=== PATIENT | female | born 1985 | race Caucasian/White ===

== ENCOUNTER 2017-11-22 18:12 | Observation (INO) | payer BC ==
[2017-11-22] MEDS ORDERED: NA CHLORIDE 0.9% 500 ML ONE (19:24)
[2017-11-22 19:50] LABS: Bicarbonate 25 mEq/L (21-31); Glucose Level 81 mg/dL (65-120); Potassium 4.1 mEq/L (3.6-5.0); Sodium Level 139 mEq/L (135-145)
[2017-11-22 19:51] LABS: BUN Blood Urea Nitrogen 15 mg/dL (6-20)
--- NOTE | 2017-11-22 19:54 | RAD REPORT ---
EXAM DESCRIPTION: CT - Head Brain Wo Cont - 11/22/2017 7:01 pm CLINICAL HISTORY: Headache, head pressure, retro-orbital pain COMPARISON: None. TECHNIQUE: Axial 5 mm thick images of the head were obtained without IV contrast. All CT scans are performed using dose optimization technique as appropriate and may include automated exposure control or mA/KV adjustment according to patient size. FINDINGS: No intracranial hemorrhage, mass, edema or shift of mid-line structures. No acute infarcti on changes seen. No abnormal extra-axial fluid collections. Ventricles are normal. Mastoid air cells and visualized portions of the paranasal sinuses are clear. No acute bony findings. IMPRESSION: Negative non-contrast CT head examination.
[2017-11-22 19:56] LABS: Absolute Lymphocytes (CBC) 1.6 K/uL (0.7-4.9); Absolute Monocytes 0.5 K/uL (0.1-1.3); Absolute Neutrophil 5.1 K/uL (1.8-8.0); Basophils % 0.3 % (0-1.3); Eosinophils % 1.2 % (0-4.4); Hematocrit 40.4 % (36.0-45.0); Lymphocytes % 22.1 % (15.3-44.8); MCH 30.1 pg (27.0-35.0); MCV 87.6 fL (80-100); MPV 8.1 fL (7.6-11.3); Monocytes % 6.4 % (3.3-12.3); RBC Red Blood Cell Count 4.61 M/uL (3.86-4.86)
[2017-11-22 20:30] LABS: Thyroid Stimulating Hormone 1.73 uIU/mL (0.34-5.60)
--- NOTE | 2017-11-22 20:44 | ER ---
Nurse's Notes [facility] Name: Selene Groves Age: 32 yrs Sex: Female : 1985 Arrival Date: 11/22/2017 Time: 18:14 Bed 2 Private MD: Diagnosis: Chest pain, unspecified;Ventricular premature depolarization Presentation: 11/22 18:17 Presenting complaint: Patient states: About 30 mins ago I got pressure in both my eyes la1 and then my chest started hurting and I feel a little disoriented. Transition of care: patient was not received from another setting of care. Onset of symptoms was November 22, 2017. Initial Sepsis Screen: Does the patient meet any 2 criteria? No. Patient's initial sepsis screen is negative. Does the patient have a suspected source of infection? No. Patient initial sepsis screen negative. Care prior to arrival: None. 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 - Social history:: Smoking status: Patient/guardian denies using tobacco. - Family history:: not pertinent. - Hospitalizations: : No recent hospitalization is reported. Screenin:20 Abuse screen: Denies threats or abuse. Denies injuries from another. Nutritional ak1 screening: No deficits noted. Tuberculosis screening: No symptoms or risk factors identified. Fall Risk None identified. Assessment: 18:30 General: Appears in no apparent distress. comfortable, obese, well groomed, well sg developed, well nourished, Behavior is calm, cooperative, appropriate for age. Pain: Complains of pain in anterior aspect of left upper chest Pain does not radiate. Quality of pain is described as aching, heavy, pressure. Neuro: Level of Consciousness is awake, alert, obeys commands, Oriented to person, place, time, situation, Team Lead are equal bilaterally Moves all extremities. Full function Gait is steady, Speech is normal, Facial symmetry appears normal, Pupils are PERRLA. Cardiovascular: Heart tones S1 S2 present Capillary refill is brisk in bilateral fingers Patient's skin is warm and dry. Respiratory: No deficits noted. Airway is patent Respiratory effort is even, unlabored, Respiratory pattern is regular, symmetrical. GI: No signs and/or symptoms were reported involving the gastrointestinal system. : No signs and/or symptoms were reported regarding the genitourinary system. EENT: No signs and/or symptoms were reported regarding the EENT system. Derm: Skin is pink, warm \T\ dry. Musculoskeletal: No signs and/or symptoms reported regarding the musculoskeletal system. 19:21 Pain: Pain began 2-3 days ago. ak1 Vital Signs: 18:18 BP 151 / 79; Pulse 36; Resp 16; Temp 97.0; Pulse Ox 100% on R/A; Weight 72.57 kg; la1 Height 5 ft. 3 in. (160.02 cm); 19:10 Pulse 82; Resp 20 S; Pulse Ox 100% on R/A; sg 19:21 BP 117 / 80; Pulse 83; Resp 20; Pulse Ox 97% on R/A; ak1 21:19 BP 123 / 66; Pulse 77; Resp 14; Pulse Ox 100% on R/A; aj 18:18 Body Mass Index 28.34 (72.57 kg, 160.02 cm) la1 19:10 BP in progress sg ED Course: 18:14 Patient arrived in ED. as 18:18 Triage completed. la1 18:19 Arm band placed on right wrist. la1 18:26 Nolan Kapadia MD is Attending Physician. rn 19:00 CT completed. Patient tolerated procedure well. Patient moved to CT via stretcher. nj Patient moved back from CT. 19:01 CT Head Brain wo Cont In Process Unspecified. EDMS 19:10 XRAY Chest (1 view) In Process Unspecified. EDMS 19:11 Patient moved back from CT. sg 19:20 Emilee Funes, ROBBIE is Primary Nurse. ak1 19:20 Patient has correct armband on for positive identification. Placed in gown. Bed in low ak1 position. Call light in reach. Side rails up X2. 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 Pulse ox on. NIBP on. 19:20 Inserted saline lock: 20 gauge in right antecubital area, using aseptic technique. ak1 Blood collected. 19:21 Patient maintains SpO2 saturation greater than 95% on room air. ak1 20:43 Eliezer Rangel MD is Hospitalizing Provider. rn 21:26 Report given to Kellie. aj 21:27 No provider procedures requiring assistance completed. Patient admitted, IV remains in aj place. intact. Administered Medications: 19:30 Drug: NS 0.9% 500 ml Route: IV; Rate: bolus; Site: right antecubital; ak1 19:57 Follow up: IV Status: Completed infusion ak1 Outcome: 20:44 Decision to Hospitalize by Provider. rn 21:27 Admitted to Tele accompanied by tech, via wheelchair, room 402, with chart, Report aj called to Kellie 21:27 Condition: good 21:27 Instructed on the need for admit, Demonstrated understanding of instructions. 21:45 Patient left the ED. bb Signatures: Dispatcher [employer] EDMS Rafat Vazquez RN Raissa Briceño RN RN Tabitha Cline Brenda, RN RN Nolan Feng MD MD rn Attema, Lee, RN RN Emilee Cox RN RN ak1 Mendoza Menchaca
--- NOTE | 2017-11-22 20:44 | EDPHYS ---
Physician Documentation [facility] Name: Selene Groves Age: 32 yrs Sex: Female : 1985 Arrival Date: 11/22/2017 Time: 18:14 Bed 2 Private MD: ED Physician Nolan Kapadia HPI: 11/22 19:05 This 32 yrs old Female presents to ER via Ambulatory with complaints of Chest rn Pain, High Blood Pressure. 19:05 The patient or guardian reports chest pain that is located primarily in the anterior rn aspect of left upper chest. The pain does not radiate. Duration: The patient or guardian reports multiple episodes, that are intermittent. Modifying factors: The symptoms are alleviated by nothing. the symptoms are aggravated by nothing. Severity of pain: At its worst the pain was mild in the emergency department the pain is unchanged. The patient has not experienced similar symptoms in the past. Reports chest pain, headache, generalized weakness, high blood pressure, has been happening on and off for 2 months. . 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 - Social history:: Smoking status: Patient/guardian denies using tobacco. - Family history:: not pertinent. - Hospitalizations: : No recent hospitalization is reported. ROS: 19:05 Constitutional: Negative for fever, chills, and weight loss, Eyes: Negative for injury, rn pain, redness, and discharge, Neck: Negative for injury, pain, and swelling, Cardiovascular: Negative for edema, Respiratory: Negative for shortness of breath, cough, wheezing, and pleuritic chest pain, Abdomen/GI: Negative for abdominal pain, nausea, vomiting, diarrhea, and constipation, Back: Negative for injury and pain, MS/Extremity: Negative for injury and deformity, Skin: Negative for injury, rash, and discoloration, Neuro: Negative for numbness, tingling, and seizure. Exam: 19:05 Constitutional: This is a well developed, well nourished patient who is awake, alert, rn and in no acute distress. Head/Face: Normocephalic, atraumatic. Eyes: Pupils equal round and reactive to light, extra-ocular motions intact. Lids and lashes normal. Conjunctiva and sclera are non-icteric and not injected. Cornea within normal limits. Periorbital areas with no swelling, redness, or edema. Neck: Trachea midline, no thyromegaly or masses palpated, and no cervical lymphadenopathy. Supple, full range of motion without nuchal rigidity, or vertebral point tenderness. No Meningismus. Cardiovascular: Regular rate, irregular rhythm, no murmur Respiratory: Lungs have equal breath sounds bilaterally, clear to auscultation and percussion. No rales, rhonchi or wheezes noted. No increased work of breathing, no retractions or nasal flaring. Abdomen/GI: Soft, non-tender, with normal bowel sounds. No distension or tympany. No guarding or rebound. No evidence of tenderness throughout. Skin: Warm, dry with normal turgor. Normal color with no rashes, no lesions, and no evidence of cellulitis. MS/ Extremity: Pulses equal, no cyanosis. Neurovascular intact. Full, normal range of motion. Equal circumference. Neuro: Awake and alert, GCS 15, oriented to person, place, time, and situation. Cranial nerves II-XII grossly intact. Motor strength 5/5 in all extremities. Sensory grossly intact. Vital Signs: 18:18 BP 151 / 79; Pulse 36; Resp 16; Temp 97.0; Pulse Ox 100% on R/A; Weight 72.57 kg; la1 Height 5 ft. 3 in. (160.02 cm); 19:10 Pulse 82; Resp 20 S; Pulse Ox 100% on R/A; sg 19:21 BP 117 / 80; Pulse 83; Resp 20; Pulse Ox 97% on R/A; ak1 21:19 BP 123 / 66; Pulse 77; Resp 14; Pulse Ox 100% on R/A; aj 18:18 Body Mass Index 28.34 (72.57 kg, 160.02 cm) la1 19:10 BP in progress sg MDM: 18:26 Patient medically screened. rn 20:42 Differential diagnosis: abnormal EKG, pericarditis, pleurisy, pneumothorax. Data rn reviewed: vital signs, nurses notes, lab test result(s), EKG, radiologic studies, plain films, and as a result, I will discharge patient. Counseling: I had a detailed discussion with the patient and/or guardian regarding: the historical points, exam findings, and any diagnostic results supporting the discharge/admit diagnosis, lab results, radiology results, the need for further work-up and treatment in the hospital. Response to treatment: the patient's symptoms have mildly improved after treatment, and as a result, I will admit patient. ED course: Pt with ongoing chest pain, no clear etiology, + bigeminy on ECG and monitor without clear explanation, will observe overnight to Dr. Gonzalez.. 11/22 18:39 Order name: CBC with Diff; Complete Time: 20:32 11/22 18:39 Order name: Basic Metabolic Panel; Complete Time: 20:32 11/22 18:39 Order name: TSH; Complete Time: 20:32 11/22 18:39 Order name: T4 Free; Complete Time: 20:32 11/22 18:39 Order name: Troponin (emerg Dept Use Only); Complete Time: 20:32 11/22 18:39 Order name: Magnesium; Complete Time: 20:32 11/22 18:39 Order name: CT Head Brain wo Cont; Complete Time: 20:32 11/22 18:39 Order name: XRAY Chest (1 view); Complete Time: 21:03 11/22 18:39 Order name: Urine Microscopic Only 11/22 20:33 Order name: Urine Dipstick--Ancillary (enter results) [facility] 11/22 20:33 Order name: Urine --Ancillary (enter results) [facility] 11/22 20:54 Order name: Urine --Ancillary; Complete Time: 21:03 [facility] 11/22 20:54 Order name: Urine Dipstick-Ancillary; Complete Time: 21:03 [facility] 11/22 18:39 Order name: IV Start; Complete Time: 19:23 11/22 18:39 Order name: EKG; Complete Time: 18:41 11/22 18:39 Order name: EKG - Nurse/Tech; Complete Time: 19:02 11/22 18:39 Order name: Urine Test (obtain specimen); Complete Time: 20:32 11/22 18:39 Order name: Urine Dipstick-Ancillary (obtain specimen); Complete Time: 20:32 rn Administered Medications: 19:30 Drug: NS 0.9% 500 ml Route: IV; Rate: bolus; Site: right antecubital; ak1 19:57 Follow up: IV Status: Completed infusion ak1 Disposition: 11/22/17 20:44 Hospitalization ordered by Eliezer Rangel for Observation. Preliminary diagnosis are Chest pain, unspecified, Ventricular premature depolarization. - Bed requested for Telemetry/MedSurg (observation). - Status is Observation. bb - Condition is Stable. - Problem is new. - Symptoms have improved. UTI on Admission? No Signatures: Dispatcher [employer] EDMS Sonja Camejo RN Bhumika Osborne RN RN Nolan Feng MD MD rn Attema, Lee, RN RN Emilee Cox, RN RN ak1
[2017-11-22 20:54] LABS: Urine Blood NEGATIVE (NEG); Urine Glucose NEGATIVE (NEG); Urine Protein NEGATIVE (NEG); Urine Specific Gravity 1.025 (1.005-1.030); Urine pH 5.5 (5.0-7.0)
--- NOTE | 2017-11-22 21:01 | RAD REPORT ---
EXAM DESCRIPTION: RAD - Chest Single View - 11/22/2017 7:10 pm CLINICAL HISTORY: Chest pain COMPARISON: None. TECHNIQUE: AP portable chest image was obtained 1859 hours . FINDINGS: Lungs are clear. Heart and vasculature are normal. No measurable pleural effusion and no p neumothorax. No gross bony abnormality seen. No acute aortic findings suspected. IMPRESSION: No acute cardiopulmonary process.
[2017-11-22 21:11] LABS: Urine Bacteria <20 /HPF (<20); Urine Culture Reflex Order NOT NEEDED
[2017-11-22] MEDS: ACETAMINOPHEN 500 MG TAB PO PRN (22:59)
--- NOTE | 2017-11-22 23:04 | P.HP ---
Certification for Inpatient Patient admitted to: Observation With expected LOS: <2 Midnights Practitioner: I am a practitioner with admitting privileges, knowledge of patient current condition, hospital course, and medical plan of care. Services: Services provided to patient in accordance with Admission requirements found in Title 42 Section 412.3 of the Code of Federal Regulations Patient History Date of Service: 11/22/17 Reason for admission: chest pain History of Present Illness: Ms Groves is a 32 years old woman with benign past medical history, came to ED complaining of chest pain. The pain last for about 1 hour, located in sternal area, about 7/10 of intensity, associated with dizziness, nausea, headache, bilateral eye pain. She denied diaphoresis. She has never had chest pain before , however, headache and dizziness episode has been a recurrent problem since 1 month ago. No history of fever or chills. At my encounter she is chest pain free. Initial troponin I is negative, EKG shows no ST-T abnormalities, but has frequent PVC's. Allergies No Known Allergies Allergy (Uncoded 11/22/17 21:48) Unknown - Past Medical/Surgical History Past Medical History: Reviewed- Non-Contributory Past Surgical History: Reviewed- Non-Contributory - Family History Family History: Reviewed- Non-Contributory - Social History Smoking Status: Never smoker Alcohol use: No CD- Drugs: No Place of Residence: Home Review of Systems 10-point ROS is otherwise unremarkable Physical Examination - Vital Signs Temperature: 98.8 F Blood Pressure: 134/65 Pulse: 79 Respirations: 18 Pulse Ox (%): 98 - Physical Exam General: Alert, In no apparent distress HEENT: Atraumatic, PERRLA, Mucous membr. moist/pink, EOMI, Sclerae nonicteric Neck: Supple, 2+ carotid pulse no bruit, No LAD, Without JVD or thyroid abnormality Respiratory: Clear to auscultation bilaterally, Normal air movement Cardiovascular: Regular rate/rhythm, Normal S1 S2 Gastrointestinal: Normal bowel sounds, No tenderness Musculoskeletal: No tenderness Integumentary: No rashes Neurological: Normal speech, Normal strength at 5/5 x4 extr, Normal tone, Normal affect Lymphatics: No axilla or inguinal lymphadenopathy - Studies Laboratory Data (last 24 hrs) 11/22/17 19:18: Sodium 139, Potassium 4.1, BUN 15, Creatinine 0.60, Glucose 81, Magnesium 2.0 04/16/18 19:18: WBC 7.2, Hgb 13.9, Hct 40.4, Plt Count 261 Assessment and Plan - Problems (Diagnosis) (1) Chest pain Current Visit: Yes Status: Acute Qualifiers: Chest pain type: precordial pain Qualified Code(s): R07.2 - Precordial pain (2) Headache Current Visit: Yes Status: Acute Qualifiers: Headache type: unspecified Headache chronicity pattern: acute headache Intractability: not intractable Qualified Code(s): R51 - Headache - Plan the patient will be admitted to the hospital due to chest pain and abnormal EKG. Initial tropoinin I is negative. 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 - Advance Directives Does patient have a Living Will: No Does patient have a Durable POA for Healthcare: No - Code Status/Comfort Care Code Status Assessed: Yes Code Status: Full Code
[2017-11-23] MEDS: ACETAMINOPHEN 500 MG TAB PO PRN ×2 (05:51→15:18)
[2017-11-23 06:13] LABS: Absolute Monocytes 0.7 K/uL (0.1-1.3); Absolute Neutrophil 4.8 K/uL (1.8-8.0); Basophils % 0.5 % (0-1.3); Hematocrit 39.8 % (36.0-45.0); Lymphocytes % 26.1 % (15.3-44.8); MCH 29.1 pg (27.0-35.0); MPV 8.4 fL (7.6-11.3); Monocytes % 8.7 % (3.3-12.3); RBC Red Blood Cell Count 4.52 M/uL (3.86-4.86)
[2017-11-23 06:27] LABS: BUN Blood Urea Nitrogen 16 mg/dL (6-20); Bicarbonate 25 mEq/L (21-31); Glucose Level 95 mg/dL (65-120); HDL Cholesterol 42 mg/dL (29-89); LDL Cholesterol, Calculated 111 (<130); Potassium 4.2 mEq/L (3.6-5.0); Sodium Level 132 mEq/L (135-145)
--- NOTE | 2017-11-23 08:28 | EKG ---
Test Date: 2017-11-22 Test Time: 18:28:35 Residential Sales: NARDA MEASUREMENT RESULTS: Intervals: Rate: 90 OK: 120 QRSD: 98 QT: 350 QTc: 428 [place]: P: 60 OK: 120 QRS: -10 T: 16 INTERPRETIVE STATEMENTS: Sinus rhythm with frequent premature ventricular complexes Abnormal ECG Compared to ECG 03/15/2011 02:48:54 Ventricular premature complex(es) now present Electronically Signed On 11-23-17 08:26:19 CDT by Dmitry Jacome
--- NOTE | 2017-11-23 08:28 | EKG ---
Test Date: 2017-11-22 Test Time: 18:29:49 Research Attorney: NARDA MEASUREMENT RESULTS: Intervals: Rate: 90 IA: QRSD: 92 QT: 370 QTc: 452 [place]: P: 54 IA: QRS: -4 T: 15 INTERPRETIVE STATEMENTS: Undetermined rhythm Otherwise normal ECG Compared to ECG 11/22/2017 18:28:35 Sinus rhythm no longer present Ventricular premature complex(es) no longer present Myocardial infarct finding no longer present Electronically Signed On 11-23-17 08:25:49 CDT by Dmitry Jacome
[2017-11-23] MEDS: ENOXAPARIN 40 MG/0.4 ML SQ SCH (08:48)
[2017-11-23] MEDS: ASPIRIN EC 81 MG TAB PO SCH (08:48)
[2017-11-23] MEDS ORDERED: HYDROCODONE/APAP 5/325 MG TAB PO ONE (08:49)
[2017-11-23] MEDS ORDERED: SUMATRIPTAN SUCCI 50 MG TAB PO ONE (10:58)
--- NOTE | 2017-11-23 12:15 | CON ---
Date of Consultation: 11/23/2017 Reason For Consultation: Chest pain, PVCs and hypertension. History Of Present Illness: Ms. Groves is a 32-year-old. She is breast-feeding now her. Baby is a year and half, came in with hypertension, slight chest pain, was noted to have PVCs on the monitor, although patient does not really feel them. She denied PND, orthopnea, pedal edema. She denied any syncope. Denied any fever or chills. She denied any excessive stress recently. 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 Past Medical History: Negative. Allergies: NONE. Review of Systems: Negative. Social History: Negative. Family History: Negative. Physical Examination: Vital Signs: Stable, afebrile. HEENT: Negative. Neck: Supple. No bruit. Chest: Clear. Cardiac: Revealed a regular rhythm and rate without any murmurs, gallops, or rubs. Abdomen: Benign. Extremities: Revealed no clubbing, cyanosis, or edema. Diagnostic Data: All normal. Impression And Plan: 1.Hypertension, new onset. Suboptimal control. PVCs on monitor. Consider the use of low-dose beta -jorgito. I believe this is safe with breast-feeding. 2.The patient has reported some snoring. Unsure if she has any sleep apnea. I think, we can arrang e an outpatient sleep study for her and we will see her as an outpatient. She can go home today if h er echocardiogram is normal. LAW/YULY Voice ID: [id number] Report ID: [id number]
--- NOTE | 2017-11-23 12:57 | RAD REPORT ---
EXAM DESCRIPTION: MRI - MRA Head Wo Cont - 11/23/2017 12:41 pm CLINICAL HISTORY: Headache, syncope COMPARISON: None. TECHNIQUE: Axial and coronal 3D [id number] image acquisition was performed. 3D rotational images were generated with source and reconstruction images reviewed. FINDINGS: No aneurysm or vascular malformation. There is no vasculitis or other diffuse or focal abn ormality of the intracranial vasculature. The internal carotid arteries are identifiable from origin to intracranial terminus. There is no dissection, stenosis or focal abnormality seen. Vertebral arter ies are codominant. No basilar abnormality. Major venous sinuses are patent. Limited intracranial assessment is grossly normal. 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 IMPRESSION: Negative MRA head examination. Bilateral internal carotid arteries and the distal half o f the each vertebral artery without abnormality as well.
--- NOTE | 2017-11-23 14:30 | PN ---
Date of Progress Note: 11/23/2017 Subjective: The patient is seen and examined, chart reviewed, and case discussed with RN. The patient denies any further chest pain. Does report headache that has been ongoing for the past several months and some visual changes. Review of Systems: Negative except as above. Medications: Reviewed. Physical Examination: Vital Signs: Temperature 97.9, heart rate 51, blood pressure 99/65, respirations 18, and O2 96% on room air. General: Awake, alert, oriented x3, in some mild distress. Obese female. CV: S1, S2. No murmurs. Regular rate and rhythm. Peripheral pulses present. Respiratory: Moving air well bilaterally. No wheezing. No stridor. No use of accessory muscles Gastrointestinal: Abdomen is soft, nontender, nondistended. Positive bowel sounds. No guarding or rigidity. Extremities: No clubbing, cyanosis, or edema. Neurologic: Nonfocal. Laboratory Data: Sodium 132, potassium 4.2, chloride 106, CO2 25, BUN 16, creatinine 0.59, glucose 95, and calcium 9.1. Troponin less than 0.03 x3. Triglycerides 98, cholesterol 173, LDL 111, and HDL 42. TSH 1.73. WBC 7.7, H and H 13.1, 39.8, and platelets 275. Head CT scan does not show any acute abnormalities. Assessment And Plan: A 32-year-old female with; 1. Atypical chest pain. We will await echocardiogram. Troponins negative. Acute coronary syndrome ruled out. 2. Acute on chronic headache, intractable, may be secondary to migraine headache versus idiopathic intracranial hypertension. We will obtain magnetic resonance venogram to rule out sinus thrombosis. We will consult Neurology. We will start on Imitrex. The patient counseled regarding caffeine withdrawal headaches and non-steroidal anti-inflammatory drug rebound headaches. The patient instructed to lose weight with a low-sodium fluid-restricted diet. The patient also recommended to establish care with a PCP. The patient voiced understanding. Nurses to provide patient education regarding headaches. Addendum: Case discussed with Dr. Jacome who feels that this is atypical chest pain. Spoke with Dr. Ruffin with neurology recommended LP under fluoro guidance for possible therapeutic tap if opening pressure is elevated SA/MODL Voice ID: [id number] Report ID: [id number] MTDD
[2017-11-23] MEDS: TOPIRAMATE 25 MG TAB PO SCH (20:20)
--- NOTE | 2017-11-24 00:27 | CON ---
Reason For Consultation: Consultation called because of persistent headache. History Of Present Illness: Ms. Groves is a 32-year-old patient who comes into the hospit al with chest pain, pressure, and headache. She said she has a history of migraines that began in he r teenage years. Typically headaches are frontal, pounding, associated with light and sound hypersen sitivity, scalp sensitivity, and nausea. Headaches may last 1-2 days and occur 2 or so a day times p er month. She would try Tylenol that may not be very effective, and Excedrin Migraine as well, which is only partially effective. She denies any triggers such as any foods, atmospheric pressure change s, or menstrual cycle triggers. Since coming into the hospital she did have a headache which ranged up to 10/10. It did not respond to Tylenol or [place], but did respond to Imitrex. She had a brain MRI and CT scan, which showed no acute ischemic or hemorrhagic change. No central ne rvous system bleeding or aneurysm identified on MR angiogram. She did say some of the headaches are associated with a pressure-like sensation in eyes and some scotoma of flashing lights. She reports having 5 children and after last she said she gained a lot of weight, and it wa s a tough on her. There was swelling of her arms, face, and there was tingling in her hand s, and there was hypertension. This was discussed with the hospitalist and the possibility of pseudo tumor cerebri was entertained, and the patient was now set for a lumbar puncture under fluoroscopy to have CSF pressure assessed and potentially a high-volume lumbar puncture with a 20-30 cc removed if the intracerebral pressure is elevated to around 15 to 20 or more centimeters of water. Past Medical History: As indicated history of migraines was undiagnosed. Note last menstrual period is 10/21/2017, and she has 5 children. Allergies: NO KNOWN DRUG ALLERGIES. Surgeries: None. Medications: On a regular basis none. Family History: Denies any history of headaches, strokes, or seizures. Social History: No alcohol, tobacco, or IV drug use. Review of Systems: She denies any recent fevers, chills, nausea, vomiting. Reports some weight gain over the last year with the . No shortness of breath. No wheezing . No diarrhea, constipation. No other gastrointestinal issues. Physical Examination: Vital Signs: Blood pressure 117/67, pulse 87, respiratory rate 18, temperature 98.4, oxygen saturati on 100% on room air, weight 164 pounds, height 5 feet 3 inches, BMI 29. General: Ms. Groves is resting in bed. She is in no acute distress. She is normocephalic, atrauma tic. Her sclerae are anicteric. Oropharynx is moist and pink. Neck: Supple. Chest: Clear. Heart: Regular. Extremities: Show no edema, cyanosis, or clubbing. She has no nuchal rigidity. Neurologic: She is alert and oriented to person, place, time, and situation. She follows all comman ds appropriately. Cranial nerves are intact to examination. Motor in the upper and lower extremitie s, normal strength proximally and distally, 5/5 rating. Sensory examination intact in upper and lowe r extremities. Coordination intact in upper and lower extremities. Reflexes 2+ upper and lower extr emities. Gait good stance, stride, and arm swing. Laboratory Studies: Complete blood count with differential is completely normal. Chemistries all co mpletely normal. Thyroid function is normal. Urinalysis unremarkable. Diagnostic Data: Electrocardiogram shows a few ventricular premature complexes, and chest x-ray show s no acute cardiopulmonary processes. Assessment: Ms. Groves is a 32-year-old patient with long history of migraines, who appears to have a migraine headache. However, there is a potential for possible pseudotumor given the patient's robyn ght gain and pressure-like finding. She does not have pupillary asymmetry or abnormal eye evaluation . Plan: 1.We will do lumbar puncture under fluoroscopy for opening pressure and potentially withdrawal of hi gh volume of CSF if the patient has an elevated opening pressure. 2.We will start Topamax 25 mg at night. 3.She may use Imitrex 25 mg orally every 2 hours up to 4 in 24 hours for abortive headache treatment . We also used Imitrex subcutaneous 6 mg as needed for abortive headache treatment. 4.The patient was told of the importance of hydration with free water and to eventually engage in re gular exercise for at least 30 minutes daily to decrease the recurrence of her headaches to manage he r blood pressure as well. 5.The patient will be seen in clinic in followup for 1 month after her discharge. RONAL/MODL Voice ID: [id number] Report ID: [id number]
--- NOTE | 2017-11-24 07:43 | ECHO ---
HEIGHT: 5 ft 3 in WEIGHT: 164 lb 6.4 oz DATE OF STUDY: 11/23/[address]: Eliezer Gonzalez MD 2-DIMENSIONAL: YES M.MODE: YES DOPPLER: YES COLOR FLOW: YES TDS: NO PORTABLE: NO DEFINITY: NO BUBBLE STUDY: NO DIAGNOSIS: CHEST PAIN CARDIAC HISTORY: CATHERIZATION: NO SURGERY: NO PROSTHETIC VALVE: NO PACEMAKER: NO MEASUREMENTS (cm) DIASTOLIC (NORMALS) SYSTOLIC (NORMALS) IVSd 0.8 (0.6-1.2) LA Diam 3.3 (1.9-4.0) LVEF 60% LVIDd 4.9 (3.5-5.7) LVIDs 3.4 (2.0-3.5) %FS 32% LVPWd 0.9 (0.6-1.2) Ao Diam 2.6 (2.0-3.7) 2 DIMENSIONAL ASSESSMENT: RIGHT ATRIUM: NORMAL LEFT ATRIUM: NORMAL RIGHT VENTRICLE: NORMAL LEFT VENTRICLE: NORMAL TRICUSPID VALVE: NORMAL MITRAL VALVE: NORMAL PULMONIC VALVE: NORMAL AORTIC VALVE: NORMAL PERICARDIAL EFFUSION: NONE AORTIC ROOT: NORMAL LEFT VENTRICULAR WALL MOTION: NORMAL DOPPLER/COLOR FLOW: MILD TRICUSPID REGURGITATION. NORMAL RIGHT VENTRICULAR SYSTOLIC PRESSURE. COMMENTS: MILD TRICUSPID REGURGITATION. NORMAL RIGHT VENTRICULAR SYSTOLIC PRESSURE. NORMAL LEFT VENTRICULAR EJECTION FRACTION AND SIZE. NO MITRAL VALVE PROLAPSE. NO EFFUSION. TECHNOLOGIST: Neptali CAIN
[2017-11-24] MEDS: ASPIRIN EC 81 MG TAB PO SCH (09:00)
[2017-11-24] MEDS: ENOXAPARIN 40 MG/0.4 ML SQ SCH (09:00)
[2017-11-24] MEDS: ACETAMINOPHEN 500 MG TAB PO PRN (09:30)
[2017-11-24 10:39] LABS: Protime INR 1.09
--- NOTE | 2017-11-24 12:20 | RAD REPORT ---
EXAM DESCRIPTION: RAD - Lumbar Puncture For Dx - 11/24/2017 12:11 pm CLINICAL HISTORY: Headache COMPARISON: None. TECHNIQUE: The procedure, risks and alternatives to the procedure were discussed with the patient in detail. After answering all questions, both oral and written consent were obtained. Time-out procedu re was performed. The patient was placed in an oblique prone position on the fluoroscopic table. The skin of the lower back was prepped and draped in the usual sterile fashion. After anesthetizing the skin and deeper sof t tissues with 1% lidocaine, a 22 gauge needle was advanced into the thecal sac at the L4-5 level. Opening pressure measurement was obtained and was normal measuring 15 centimeters of water. Approximately 12 cc of clear CSF was then obtained and sent for requested lab studies. At the conclusion of the procedure the needle was withdrawn and a sterile bandage placed over the pun cture site. The patient tolerated the procedure well without immediate complications. Post-procedure care and precaution instructions were discussed with the patient before the LP procedure. IMPRESSION: Successful fluoroscopic guided lumbar puncture. All obtained fluid was sent to the lab f or studies requested by the referring physician.
[2017-11-24 13:03] LABS: Fluid Total Volume 12.5 ml
[2017-11-24 13:25] LABS: CSF Glucose 59 mg/dl (40-70)
[2017-11-24 13:56] LABS: Appearance CLEAR (CLEAR); Body Fluid Source CSF; Color of fluid Colorless (COLORLESS)
[2017-11-24 13:57] LABS: Body Fluid WBC 0 /mm^3
[2017-11-24] MEDS ORDERED: HYDROCODONE/APAP 7.5/325 MG TAB PO PRN ×2 (14:53→17:18)
[2017-11-24] MEDS ORDERED: DIAZEPAM 5 MG TABLET PO SCH (15:00)
[2017-11-24] MEDS: TOPIRAMATE 25 MG TAB PO SCH (20:23)
--- NOTE | 2017-11-24 21:34 | PN ---
Date of Progress Note: 11/24/2017 Subjective: The patient seen and examined. Chart reviewed and case discussed with RN and Neurology, Dr. Ruffin. The patient going for lumbar tap today. The patient's headache is still present. Review of Systems: Negative except as above. Medications: Reviewed. Objective: Vital Signs: Temperature 97.6, heart rate 54, blood pressure 115/56, respirations 18, O2 97% on room air. General: Awake, alert, oriented x3, in some acute distress. Obese female. CV: S1, S2. No murmurs. Peripheral pulses present. Respiratory: Moving air well bilaterally. No wheezing. Gastrointestinal: Abdomen is soft, obese, nontender, nondistended. Positive bowel sounds. Extremities: No clubbing, cyanosis, edema. Neuro: Nonfocal. Laboratory Data: INR 1.09. CSF: Volume 12.5; color, colorless; appearance, clear, nonxanthochromic ; WBC 0; RBC 0, no neutrophils, lymphocytes, or mononuclear cells. Glucose 59, total protein 26. Cu lture pending. No WBC seen. No organisms seen. Echocardiogram shows EF 60%, normal EF. Assessment And Plan: A 32-year-old female with, 1.Atypical chest pain, resolved. Acute coronary syndrome ruled out. 2.Acute on chronic headache, intractable secondary to migraine headache versus idiopathic intracrani al hypertension. MRI is negative. We will continue patient on Topamax and Imitrex as needed. LP garcia s been done. Opening pressure was 15. Appreciate Dr. Jacome's input. 3.Obesity. Counseled on diet restriction and weight loss. SA/MODL Voice ID: [id number] Report ID: [id number]
--- NOTE | 2017-11-25 13:57 | P.DS ---
Admission Date: 11/22/17 Discharge Date: 11/25/17 Disposition: ROUTINE DISCHARGE Discharge Condition: GOOD Reason for Admission: chest pain Consultations: Cardiology Dr. Jacome neurology Dr. neville Procedures: Lumbar puncture - Problems (1) Chest pain Onset Date: 11/23/17 Status: Acute Qualifiers: Chest pain type: precordial pain Qualified Code(s): R07.2 - Precordial pain (2) Headache Onset Date: 11/23/17 Status: Acute Qualifiers: Headache type: unspecified Headache chronicity pattern: acute headache Intractability: not intractable Qualified Code(s): R51 - Headache Brief History of Present Illness: From H and P Ms Groves is a 32 years old woman with benign past medical history, came to ED complaining of chest pain. The pain last for about 1 hour, located in sternal area, about 7/10 of intensity, associated with dizziness, nausea, headache, bilateral eye pain. She denied diaphoresis. She has never had chest pain before , however, headache and dizziness episode has been a recurrent problem since 1 month ago. No history of fever or chills. At my encounter she is chest pain free. Initial troponin I is negative, EKG shows no ST-T abnormalities, but has frequent PVC's. Hospital Course: Patient is a 32-year-old female who was admitted to the hospital for chest pain and headache. Patient was seen by cardiology and ACS was ruled out. Echo was done which showed normal ejection fraction. Patient was complaining of headaches for several months. She was thought to have idiopathic intracranial hypertension neurology was consulted patient had lumbar puncture done but did not have an elevated opening pressure. CSF results were normal patient then was started on Imitrex and Topamax which improved her headache MRI was done to rule out any intracranial abnormalities which was also negative for any acute changes. Patient felt better. She was then cleared for discharge from consultants standpoint. Patient was instructed on safety considering her new medications and was instructed to discontinue breast-feeding due to Topamax which can pass through in breast milk. Patient voiced understanding Vital Signs/Physical Exam: Temp Pulse Resp BP Pulse Ox 97.3 F 72 17 118/66 98 11/24/17 20:00 11/24/17 20:00 11/24/17 20:00 11/24/17 20:00 11/24/17 20:00 Other Physical/Emotional Findings: PLEASE SEE PROGRESS NOTE DICTATED ON DAY OF DISCHARGE FOR PHYSICAL EXAM FINDINGS Laboratory Data at Discharge: WBC 7.7 K/uL (4.3-10.9) 11/23/17 05:26 Hgb 13.1 g/dL (12.0-15.0) 11/23/17 05:26 Hct 39.8 % (36.0-45.0) 11/23/17 05:26 Plt Count 275 K/uL (152-406) 11/23/17 05:26 PT 12.9 SECONDS (9.5-12.5) H 11/24/17 10:15 INR 1.09 11/24/17 10:15 APTT 27.4 SECONDS (24.3-36.9) 11/24/17 10:15 Sodium 132 mEq/L (135-145) L 11/23/17 05:26 Potassium 4.2 mEq/L (3.6-5.0) 11/23/17 05:26 BUN 16 mg/dL (6-20) 11/23/17 05:26 Creatinine 0.59 mg/dL (0.44-1.00) 11/23/17 05:26 Glucose 95 mg/dL (65-120) 11/23/17 05:26 Magnesium 2.0 mg/dL (1.8-2.5) 11/22/17 19:18 Troponin I < 0.03 ng/mL (<0.03) 11/23/17 14:18 Triglycerides 98 mg/dL (35-160) 11/23/17 05:26 Cholesterol 173 mg/dL (<200) 11/23/17 05:26 HDL Cholesterol 42 mg/dL (29-89) 11/23/17 05:26 Cholesterol/HDL Ratio 4.12 11/23/17 05:26 Home Medications: RX: Metoprolol Tartrate 12.5 mg PO DAILY #30 tablet 11/24/17 RX: Topiramate [Topamax*] 25 mg PO BEDTIME #30 tab 11/24/17 Sumatriptan [Imitrex] 25 mg PO PRN #30 tab 11/24/17 New Medications: RX: Metoprolol Tartrate 12.5 mg PO DAILY #30 tablet RX: Topiramate [Topamax*] 25 mg PO BEDTIME #30 tab Sumatriptan [Imitrex] 25 mg PO PRN #30 tab Patient Discharge Instructions: Follow up with lead shipper Dr. Jacome in 2 weeks. Follow up with neurologist Dr. Neville in 2 weeks. Establish care with a PCP. Return to ER for worsening condition Diet: Low sodium Activity: Ad michael Followup: Dmitry Jacome MD [ACTIVE - CAN ADMIT] - Messi Neville MD [ASSOCIATE-ACTIVE - CAN ADMIT] -
== END 2017-11-24 21:55 | disposition home or self-care (01) ==
LOC: ER 18:12 → ERHOLD 20:44 → 4TH 21:29
PROVIDERS: ADMIT Internal Medicine; ATTEND Internal Medicine
PROC: 009U3ZX Drainage of Spinal Canal, Percutaneous Approach, Diagnostic (ICD-10-PCS; principal; 2017-11-24)
DX: R07.2 Precordial pain (principal); R51 Headache
CPT/HCPCS: 36415; 62270; 70450; 70544; 71045; 77003; 80048; 80061; 81003; 81015; 81025; 82945; 83735; 84157; 84439; 84443; 84484; 85025; 85610; 85730; 87070; 88108; 88313; 89050; 93005; 93306; 99285; G0378; J1650

== ENCOUNTER 2017-11-25 08:48 | Emergency (ER) | payer BC ==
[2017-11-25] MEDS ORDERED: NA CHLORIDE 0.9% 2,000 ML ONE (09:55)
[2017-11-25] MEDS ORDERED: ONDANSETRON 4 MG/2 ML VIAL ONE (10:27)
[2017-11-25] MEDS ORDERED: FENTANYL CITR 100 MCG/2 ML ONE (10:27)
[2017-11-25 10:32] LABS: Absolute Lymphocytes (CBC) 1.1 K/uL (0.7-4.9); Absolute Monocytes 0.5 K/uL (0.1-1.3); Absolute Neutrophil 7.5 K/uL (1.8-8.0); Basophils % 0.5 % (0-1.3); Eosinophils % 1.5 % (0-4.4); Hematocrit 41.6 % (36.0-45.0); MCH 29.7 pg (27.0-35.0); MCV 86.2 fL (80-100); MPV 8.1 fL (7.6-11.3); Monocytes % 5.2 % (3.3-12.3); RBC Red Blood Cell Count 4.82 M/uL (3.86-4.86)
[2017-11-25 10:44] LABS: ALT/SGPT 17 IU/L (10-60); AST/SGOT 13 IU/L (10-42); Albumin 4.3 g/dL (3.2-5.5); Alkaline Phosphatase 78 IU/L (42-121); BUN Blood Urea Nitrogen 15 mg/dL (6-20); Bicarbonate 24 mEq/L (21-31); Bilirubin Total 0.6 mg/dL (0.3-1.2); Glucose Level 100 mg/dL (65-120); Potassium 3.8 mEq/L (3.6-5.0); Protein, Total 7.7 g/dL (6.0-8.3); Sodium Level 135 mEq/L (135-145)
--- NOTE | 2017-11-25 11:37 | EDPHYS ---
Physician Documentation [facility] Name: Selene Groves Age: 32 yrs Sex: Female : 1985 Arrival Date: 11/25/2017 Time: 08:51 Bed 19 Private MD: None, None ED Physician Juan Corrales HPI: 11/25 10:46 This 32 yrs old Female presents to ER via Ambulatory with complaints of jah Headache. 10:46 The patient complains of pain to the top of head, forehead, left frontal area, left jah side of the back of head, left temporal area, left occipital area, right frontal area, right side of the back of head, right temporal area and right occipital area. The patient describes the headache as constant. Onset: The symptoms/episode began/occurred 1 day(s) ago. Associated signs and symptoms: The patient has no apparent associated signs or symptoms. Severity of symptoms: At its worst the pain was moderate, in the emergency department the pain is unchanged. Headache History: Denies prior headaches. The patient has not experienced similar symptoms in the past. 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 - Social history:: Smoking status: Patient/guardian denies using tobacco. - Family history:: not pertinent. ROS: 10:46 Constitutional: Negative for fever, chills, and weight loss, Eyes: Negative for injury, jah pain, redness, and discharge, ENT: Negative for injury, pain, and discharge, Neck: Negative for injury, pain, and swelling, Cardiovascular: Negative for chest pain, palpitations, and edema, Respiratory: Negative for shortness of breath, cough, wheezing, and pleuritic chest pain, Abdomen/GI: Negative for abdominal pain, nausea, vomiting, diarrhea, and constipation, Back: Negative for injury and pain, : Negative for injury, bleeding, discharge, and swelling, MS/Extremity: Negative for injury and deformity, Skin: Negative for injury, rash, and discoloration, Psych: Negative for depression, anxiety, suicide ideation, homicidal ideation, and hallucinations, Allergy/Immunology: Negative for hives, rash, and allergies, Endocrine: Negative for neck swelling, polydipsia, polyuria, polyphagia, and marked weight changes, Hematologic/Lymphatic: Negative for swollen nodes, abnormal bleeding, and unusual bruising. 10:46 Neuro: Positive for headache, worse with standing. Exam: 10:46 Constitutional: This is a well developed, well nourished patient who is awake, alert, jah and in no acute distress. Head/Face: Normocephalic, atraumatic. Eyes: Pupils equal round and reactive to light, extra-ocular motions intact. Lids and lashes normal. Conjunctiva and sclera are non-icteric and not injected. Cornea within normal limits. Periorbital areas with no swelling, redness, or edema. ENT: Nares patent. No nasal discharge, no septal abnormalities noted. Tympanic membranes are normal and external auditory canals are clear. Oropharynx with no redness, swelling, or masses, exudates, or evidence of obstruction, uvula midline. Mucous membranes moist. Neck: Trachea midline, no thyromegaly or masses palpated, and no cervical lymphadenopathy. Supple, full range of motion without nuchal rigidity, or vertebral point tenderness. No Meningismus. Chest/axilla: Normal chest wall appearance and motion. Nontender with no deformity. No lesions are appreciated. Cardiovascular: Regular rate and rhythm with a normal S1 and S2. No gallops, murmurs, or rubs. Normal PMI, no JVD. No pulse deficits. Respiratory: Lungs have equal breath sounds bilaterally, clear to auscultation and percussion. No rales, rhonchi or wheezes noted. No increased work of breathing, no retractions or nasal flaring. Abdomen/GI: Soft, non-tender, with normal bowel sounds. No distension or tympany. No guarding or rebound. No evidence of tenderness throughout. Back: No spinal tenderness. No costovertebral tenderness. Full range of motion. Skin: Warm, dry with normal turgor. Normal color with no rashes, no lesions, and no evidence of cellulitis. MS/ Extremity: Pulses equal, no cyanosis. Neurovascular intact. Full, normal range of motion. Neuro: Awake and alert, GCS 15, oriented to person, place, time, and situation. Cranial nerves II-XII grossly intact. Motor strength 5/5 in all extremities. Sensory grossly intact. Cerebellar exam normal. Normal gait. Psych: Awake, alert, with orientation to person, place and time. Behavior, mood, and affect are within normal limits. Vital Signs: 09:01 BP 121 / 69; Pulse 66; Resp 16; Temp 98.0(TE); Pulse Ox 99% on R/A; Weight 74.39 kg; ss Height 5 ft. 3 in. (160.02 cm); Pain 10/10; 09:35 BP 106 / 63; Pulse 63; Resp 16; Pulse Ox 99% on R/A; ae1 10:24 BP 101 / 84; Pulse 66; Resp 17; Pulse Ox 100% on R/A; ae1 11:24 BP 109 / 67; Pulse 68; Resp 16; Pulse Ox 98% ; ae1 11:37 BP 109 / 67; Pulse 68; Resp 16; Pulse Ox 98% on R/A; mh5 12:30 BP 116 / 67; Pulse 63; Resp 15; Pulse Ox 97% on R/A; ae1 14:05 BP 115 / 63; Pulse 69; Resp 16; Pulse Ox 99% on R/A; ae1 09:01 Body Mass Index 29.05 (74.39 kg, 160.02 cm) ss MDM: 09:44 Patient medically screened. [facility] 11/25 09:45 Order name: CBC with Diff; Complete Time: 10:46 [facility] 11/25 09:45 Order name: Comprehensive Metabolic Panel; Complete Time: 10:49 [facility] 11/25 10:10 Order name: Urine Dipstick--Ancillary (enter results) [facility] 11/25 10:10 Order name: Urine --Ancillary (enter results) [facility] 11/25 09:45 Order name: Urine Dipstick-Ancillary (obtain specimen); Complete Time: 10:09 [facility] 11/25 09:45 Order name: Urine Test (obtain specimen); Complete Time: 10:09 [facility] Administered Medications: 10:00 Drug: NS 0.9% 1000 ml Route: IV; Rate: 1 bolus; Site: right antecubital; ae1 14:02 Follow up: IV Status: Completed infusion ae1 10:09 Drug: NS 0.9% 1000 ml Route: IV; Rate: 1 bolus; Site: right antecubital; ae1 14:02 Follow up: IV Status: Completed infusion ae1 10:27 Drug: Zofran 4 mg Route: IVP; Site: right antecubital; ae1 11:26 Follow up: Response: No adverse reaction; Nausea is decreased ae1 10:33 Drug: fentaNYL (PF) 25 mcg Route: IVP; Site: right antecubital; ae1 11:27 Follow up: Response: Pain is decreased ae1 12:25 Drug: fentaNYL (PF) 25 mcg Route: IVP; Site: right antecubital; ae1 12:36 Follow up: Response: Pain is decreased ae1 Disposition: 11/25/17 11:36 Discharged to Home. Impression: Headache - spinal. - Condition is Stable. - Discharge Instructions: Spinal Headache. - Prescriptions for Fioricet with Codeine 50- 325-40-30 mg Oral capsule - take 1 capsule by ORAL route every 4 hours as needed not to exceed 6 capsules per 24hrs; 24 capsule. Zofran 4 mg Oral Tablet - take 1 tablet by ORAL route every 12 hours As needed; 20 tablet. - Medication Reconciliation Form, Thank You Letter, Antibiotic Education, Prescription Opioid Use, Work release form form. - Follow up: Private Physician; When: 2 - 3 days; Reason: Recheck today's complaints, Continuance of care, Re-evaluation by your physician. Follow up: Messi Ruffin; When: 2 - 3 days; Reason: Recheck today's complaints, Re-evaluation by your physician. - Problem is new. - Symptoms have improved. Signatures: Dispatcher [employer] EDPR Juan Corrales MD MD cha Smirch, Shelby, RN RN ss Karl Cash RN RN ae1
--- NOTE | 2017-11-25 11:37 | ER ---
Nurse's Notes [facility] Name: Selene Groves Age: 32 yrs Sex: Female : 1985 Arrival Date: 11/25/2017 Time: 08:51 Bed 19 Private MD: None, None Diagnosis: Headache-spinal Presentation: 11/25 08:59 Presenting complaint: Patient states: Admitted Wednesday for CP and HTN, discharged last ss night after having and LP yesterday is back today with worse headache. Pt has a history of migraines, but reports that this is different. Transition of care: patient was not received from another setting of care. Onset of symptoms was November 24, 2017. Initial Sepsis Screen: Does the patient meet any 2 criteria? Does the patient have a suspected source of infection? No. Patient's initial sepsis screen is negative. Care prior to arrival: None. 08:59 Method Of Arrival: Ambulatory ss 08:59 Acuity: LUCÍA 2 ss Triage Assessment: 10:15 Headache History: The patient has had previous headaches and this one is different than ae1 previous episodes, and this one is more severe than previous episodes. General: Appears uncomfortable. Pain: Pain began gradually, 1 day ago. 14:02 Pain: Also complains of nausea. 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 - Social history:: Smoking status: Patient/guardian denies using tobacco. - Family history:: not pertinent. Screenin:18 Abuse screen: Denies threats or abuse. Nutritional screening: No deficits noted. ae1 Tuberculosis screening: No symptoms or risk factors identified. Fall Risk None identified. Assessment: 10:13 General: Appears uncomfortable, Behavior is cooperative, combative. Pain: Complains of ae1 pain in head and back of head Pain currently is 10 out of 10 on a pain scale. Neuro: Level of Consciousness is awake, alert, obeys commands, Oriented to person, place, time, situation. Cardiovascular: Heart tones S1 S2 present Patient's skin is warm and dry. Respiratory: Airway is patent Respiratory effort is even, unlabored, Respiratory pattern is regular, symmetrical, Breath sounds are clear bilaterally. GI: Patient currently denies nausea. : No signs and/or symptoms were reported regarding the genitourinary system. Urine is clear. EENT: No signs and/or symptoms were reported regarding the EENT system. Derm: Skin is pale. Musculoskeletal: No signs and/or symptoms reported regarding the musculoskeletal system. 10:26 Reassessment: Patient is requesting pain medication. Provider notified, new orders ae1 received. 11:30 Reassessment: Verified with Dr. Perez if he wanted to gain consent from patient, ae1 presented consent form, Dr. Perez stated " I usually don't. She knows why she's here." Charge Nurse notified. Will continue to monitor. 12:37 Reassessment: Patient is resting supine at a 45 degree angle, a 15 degree angle ae1 increase per Dr. Perez. IV fluids still infusing. Patient states feeling better. 13:27 Reassessment: Patient awaiting a ride home. Patient states she has called her ae1 for a ride. Patient states feeling better. Vital Signs: 09:01 BP 121 / 69; Pulse 66; Resp 16; Temp 98.0(TE); Pulse Ox 99% on R/A; Weight 74.39 kg; ss Height 5 ft. 3 in. (160.02 cm); Pain 10/10; 09:35 BP 106 / 63; Pulse 63; Resp 16; Pulse Ox 99% on R/A; ae1 10:24 BP 101 / 84; Pulse 66; Resp 17; Pulse Ox 100% on R/A; ae1 11:24 BP 109 / 67; Pulse 68; Resp 16; Pulse Ox 98% ; ae1 11:37 BP 109 / 67; Pulse 68; Resp 16; Pulse Ox 98% on R/A; mh5 12:30 BP 116 / 67; Pulse 63; Resp 15; Pulse Ox 97% on R/A; ae1 14:05 BP 115 / 63; Pulse 69; Resp 16; Pulse Ox 99% on R/A; ae1 09:01 Body Mass Index 29.05 (74.39 kg, 160.02 cm) ED Course: 08:51 Patient arrived in ED. mr 08:51 None, None is Private Physician. mr 09:00 Triage completed. ss 09:01 Arm band placed on right wrist. ss 09:06 Karl Cash, ROBBIE is Primary Nurse. ae1 09:44 Juan Corrales MD is Attending Physician. jah 09:55 Inserted saline lock: 22 gauge in right antecubital area, using aseptic technique. ae1 Blood collected. 10:09 Comprehensive Metabolic Panel Sent. ae1 10:09 CBC with Diff Sent. ae1 10:16 Placed in gown. Bed in low position. Call light in reach. Side rails up X 1. Pulse ox ae1 on. NIBP on. Door closed. Noise minimized. Lights dimmed. Warm blanket given. Pillow given. Warm wash cloths applied over eyes per patient request. 11:30 Blood patch administration. Patient tolerated well, patient is placed supine at 30 ae1 degree angle, per Dr. Perez. 11:36 Messi Ruffin MD is Referral Physician. jah 14:04 IV discontinued, intact, bleeding controlled, No redness/swelling at site. Pressure ae1 dressing applied. Administered Medications: 10:00 Drug: NS 0.9% 1000 ml Route: IV; Rate: 1 bolus; Site: right antecubital; ae1 14:02 Follow up: IV Status: Completed infusion ae1 10:09 Drug: NS 0.9% 1000 ml Route: IV; Rate: 1 bolus; Site: right antecubital; ae1 14:02 Follow up: IV Status: Completed infusion ae1 10:27 Drug: Zofran 4 mg Route: IVP; Site: right antecubital; ae1 11:26 Follow up: Response: No adverse reaction; Nausea is decreased ae1 10:33 Drug: fentaNYL (PF) 25 mcg Route: IVP; Site: right antecubital; ae1 11:27 Follow up: Response: Pain is decreased ae1 12:25 Drug: fentaNYL (PF) 25 mcg Route: IVP; Site: right antecubital; ae1 12:36 Follow up: Response: Pain is decreased ae1 Outcome: 11:36 Discharge ordered by . jah 14:02 Discharged to home via wheelchair, Patient states is on his way to pick her up. ae1 14:02 Condition: stable 14:02 Discharge instructions given to patient, Instructed on discharge instructions, follow up and referral plans. medication usage, Demonstrated understanding of instructions, Prescriptions given X 2. 14:04 Patient left the ED. ae1 Signatures: Juan Corrales MD MD cha Rivera, Maria mr Smirch, Shelby, RN RN Karl Cash RN RN ae1 Veronica Geiger [facility]
[2017-11-25 11:46] LABS: Urine Blood 2+ (NEG); Urine Glucose NEGATIVE (NEG); Urine Protein NEGATIVE (NEG); Urine Specific Gravity 1.025 (1.005-1.030); Urine pH 5.5 (5.0-7.0)
== END 2017-11-25 14:04 | disposition home or self-care (01) ==
LOC: ER 08:48
DX: R51 Headache (principal)
CPT/HCPCS: 36415; 80053; 81003; 81025; 85025; 96361; 96374; 96375; 99285; J2405; J3010; J7030

== ENCOUNTER 2018-08-14 10:56 | Emergency (ER) | payer BC ==
--- OUTSIDE RECORDS SUMMARY | 2018-08-14 10:58 | XMS REPORT ---
:1985 [facility] Address [address] [place] [address] Dr. Dao [address] [place] [address] Care Team Providers Name Role Phone Unavailable Unavailable Unavailable Problems This patient has no known problems. Allergies, Adverse Reactions, Alerts This patient has no known allergies or adverse reactions. Medications This patient has no known medications.
[2018-08-14 12:04] LABS: Urine Blood NEGATIVE (NEG); Urine Glucose NEGATIVE (NEG); Urine Protein NEGATIVE (NEG); Urine Specific Gravity >1.030 (1.005-1.030); Urine pH 5.5 (5.0-7.0)
[2018-08-14] MEDS ORDERED: MORPHINE 4 MG/ML SYR ONE (12:10)
[2018-08-14] MEDS ORDERED: NA CHLORIDE 0.9% 1,000 ML ONE (12:11)
[2018-08-14] MEDS ORDERED: KETOROLAC 30 MG/ML INJ ONE (12:11)
[2018-08-14] MEDS ORDERED: ONDANSETRON 4 MG/2 ML VIAL ONE (12:11)
--- NOTE | 2018-08-14 12:14 | RAD REPORT ---
EXAM DESCRIPTION: CT - Head Brain Wo Cont - 08/14/2018 12:08 pm CLINICAL HISTORY: HEADACHE COMPARISON: Head Brain Wo Cont dated 11/22/2017 TECHNIQUE: All CT scans are performed using dose optimization technique as appropriate and may inclu de automated exposure control or mA/KV adjustment according to patient size. FINDINGS: No intracranial hemorrhage, hydrocephalus or extra-axial fluid collection.No areas of brai n edema or evidence of midline shift. The paranasal sinuses and mastoids are clear. The calvarium is intact. IMPRESSION: No acute intracranial abnormality.
[2018-08-14 12:49] LABS: Absolute Lymphocytes (CBC) 1.3 K/uL (0.7-4.9); Absolute Monocytes 0.4 K/uL (0.1-1.3); Basophils % 0.6 % (0-1.3); Eosinophils % 1.8 % (0-4.4); Hematocrit 40.6 % (36.0-45.0); Lymphocytes % 16.9 % (15.3-44.8); MPV 9.1 fL (7.6-11.3); Monocytes % 4.5 % (3.3-12.3); RBC Red Blood Cell Count 4.49 M/uL (3.86-4.86)
--- NOTE | 2018-08-14 12:56 | ER ---
Nurse's Notes [facility] Name: Selene Groves Age: 33 yrs Sex: Female : 1985 Arrival Date: 08/14/2018 Time: 10:59 Bed 19 Private MD: Javed Alva H Diagnosis: Migraine;Urinary tract infection, site not specified Presentation: 08/14 11:32 Presenting complaint: Patient states: migraine that started this morning at 0730, hx of em one other migraine on , c/o nausea, photophobia, and dizziness, pain is on the top of head, denies vomiting and fever. Transition of care: patient was not received from another setting of care. Onset of symptoms was August 14, 2018. Risk Assessment: Do you want to hurt yourself or someone else? Patient reports no desire to harm self or others. Initial Sepsis Screen: Does the patient meet any 2 criteria? No. Patient's initial sepsis screen is negative. Does the patient have a suspected source of infection? No. Patient's initial sepsis screen is negative. Care prior to arrival: None. 11:32 Method Of Arrival: Ambulatory em 11:38 Acuity: LUCÍA 3 iw Triage Assessment: 11:35 General: Appears in no apparent distress. uncomfortable, Behavior is calm, cooperative, em Denies fever. Pain: Complains of pain in top of head Pain currently is 9 out of 10 on a pain scale. 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 - Social history:: Smoking status: Patient/guardian denies using tobacco. - Ebola Screening: : Patient negative for fever greater than or equal to 101.5 degrees Fahrenheit, and additional compatible Ebola Virus Disease symptoms Patient denies exposure to infectious person Patient denies travel to an Ebola-affected area in the 21 days before illness onset No symptoms or risks identified at this time. Screenin:35 Abuse screen: Denies threats or abuse. Nutritional screening: No deficits noted. em Tuberculosis screening: No symptoms or risk factors identified. Fall Risk None identified. Vital Signs: 11:35 BP 110 / 67; Pulse 64; Resp 18; Temp 98.4(O); Pulse Ox 100% on R/A; Weight 59.42 kg; em Height 5 ft. 2 in. (157.48 cm); Pain 9/10; 12:39 BP 133 / 74; Pulse 62; Resp 17; Temp 98.2(O); Pulse Ox 100% on R/A; mh5 11:35 Body Mass Index 23.96 (59.42 kg, 157.48 cm) em ED Course: 10:59 Patient arrived in ED. sb2 10:59 Javed Alva DO is Private Physician. sb2 11:09 Jj Carreno LVN is Primary Nurse. em 11:09 Juan Corrales MD is Attending Physician. jah 11:35 Arm band placed on. em 11:35 Patient has correct armband on for positive identification. Placed in gown. Bed in low em position. Call light in reach. Side rails up X2. Pulse ox on. NIBP on. 11:38 Triage completed. iw 12:07 CT completed. Patient tolerated procedure well. Patient moved back from CT. bq 12:09 CT Head Brain wo Cont In Process Unspecified. EDMS 12:23 Initial lab(s) drawn, by me, sent to lab. Inserted saline lock: 20 gauge in left hj antecubital area, using aseptic technique. Blood collected. 12:56 Javed Alva DO is Referral Physician. jah 12:56 Messi Ruffin MD is Referral Physician. jah 13:16 No provider procedures requiring assistance completed. em 13:30 IV discontinued, intact, bleeding controlled, No redness/swelling at site. Pressure em dressing applied. Administered Medications: 12:24 Drug: NS 0.9% 1000 ml Route: IV; Rate: 1 bolus; Site: right antecubital; hj 13:10 Follow up: IV Status: Completed infusion; IV Intake: 1000ml em 12:24 Drug: TORadol 30 mg Route: IVP; Site: right antecubital; hj 13:15 Follow up: Response: No adverse reaction; Pain is decreased em 12:25 Drug: morphine 4 mg Route: IVP; Site: right antecubital; hj 13:15 Follow up: Response: No adverse reaction; Pain is decreased em 12:25 Drug: Zofran 4 mg Route: IVP; Site: right antecubital; hj 13:15 Follow up: Response: No adverse reaction; Pain is decreased em 13:05 Drug: Rocephin 1 grams Route: IV; Rate: calculated rate; Site: right antecubital; hj 13:30 Follow up: Response: No adverse reaction; IV Status: Completed infusion; IV Intake: 10mlem 13:09 Not Given (Other Intervention Used): Rocephin - (cefTRIAXone) 1 grams IVPB once over 30 hj mins; (mix in 50 mL NS) Intake: 13:10 IV: 1000ml; Total: 1000ml. em 13:30 IV: 10ml; Total: 1010ml. em Outcome: 12:56 Discharge ordered by . jah 13:30 Discharged to home ambulatory. em 13:30 Condition: good 13:30 Discharge instructions given to patient, Instructed on discharge instructions, follow up and referral plans. medication usage, Demonstrated understanding of instructions, follow-up care, medications, Prescriptions given X 3. 13:31 Patient left the ED. em Addendum: 08/17/2018 09:47 Addendum: Culture Results: Positive urine culture. Bacteria is intermediately sensitive a a5 to prescribed antibiotics. Call to check on patient to see if feeling better per CYNTHIA O[place]ied[place]. Phone call Attempt #[phone]. Left voicemail. 12:58 Addendum: Culture Results: Phone call Attempt #2 Pt called back. Pt states no change a a5 symptoms have not improved. Augmentin 875mg PO BID x 10 days called in to [facility] in [place], [place] (per pt's request) per CYNTHIA [place]. Signatures: Dispatcher [employer] Juan Littlejohn MD MD cha Quilty, Betty bq Munoz, Edgar, VIBRATION TECHNICIAN VIBRATION TECHNICIAN em Rebecca Sandoval RN RN iw Calderon, Audri, RN RN aa5 Ryan Olson RN RN hj Martinez, Maria [facility] Hue Braswell sb2 Corrections: (The following items were deleted from the chart) 08/14 12:40 12:37 BP 126 / 81; Pulse 93bpm; Resp 17bpm; Pulse Ox 100% RA; Temp 98.3F Oral; mh5 mh5 08/17 09:53 09:47 Addendum: Culture Results: Positive urine culture. Bacteria is intermediately aa5 sensitive to prescribed antibiotics. Call to check on patient to see if feeling better per CYNTHIA [place]. Phone call Attempt #[phone]
[2018-08-14 12:57] LABS: ALT/SGPT 30 U/L (12-78); AST/SGOT 14 U/L (15-37); Albumin 3.7 g/dL (3.4-5.0); Alkaline Phosphatase 52 U/L (45-117); BUN Blood Urea Nitrogen 11 mg/dL (7-18); Bicarbonate 25 mmol/L (21-32); Bilirubin Total 0.6 mg/dL (0.2-1.0); Glucose Level 90 mg/dL (74-106); Potassium 3.6 mmol/L (3.5-5.1); Protein, Total 7.3 g/dL (6.4-8.2); Sodium Level 142 mmol/L (136-145)
--- NOTE | 2018-08-14 12:57 | EDPHYS ---
Physician Documentation [facility] Name: Selene Groves Age: 33 yrs Sex: Female : 1985 Arrival Date: 08/14/2018 Time: 10:59 Bed 19 Private MD: Javed Alva H ED Physician Juan Corrales HPI: 08/14 11:50 This 33 yrs old Female presents to ER via Ambulatory with complaints of jah Migraine. 11:50 The patient complains of pain to the top of head, forehead, left frontal area, left jah temporal area, right frontal area and right temporal area. The patient describes the headache as constant. Onset: The symptoms/episode began/occurred 1 day(s) ago. Associated signs and symptoms: Pertinent positives: nausea, Photophobia vomiting. Severity of symptoms: At its worst the pain was moderate, in the emergency department the pain is unchanged. Headache History: The patient has had previous headaches and this one is similar to previous episodes. The symptoms are alleviated by Darkened room, quiet, remaining still, the symptoms are aggravated by lights, movement, noise, stress. The patient has not experienced similar symptoms in the past. 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 - Social history:: Smoking status: Patient/guardian denies using tobacco. - Ebola Screening: : Patient negative for fever greater than or equal to 101.5 degrees Fahrenheit, and additional compatible Ebola Virus Disease symptoms Patient denies exposure to infectious person Patient denies travel to an Ebola-affected area in the 21 days before illness onset No symptoms or risks identified at this time. ROS: 11:51 Constitutional: Negative for fever, chills, and weight loss, Eyes: Negative for injury, jah pain, redness, and discharge, ENT: Negative for injury, pain, and discharge, Neck: Negative for injury, pain, and swelling, Cardiovascular: Negative for chest pain, palpitations, and edema, Respiratory: Negative for shortness of breath, cough, wheezing, and pleuritic chest pain, Abdomen/GI: Negative for abdominal pain, nausea, vomiting, diarrhea, and constipation, Back: Negative for injury and pain, : Negative for injury, bleeding, discharge, and swelling, MS/Extremity: Negative for injury and deformity, Skin: Negative for injury, rash, and discoloration, Psych: Negative for depression, anxiety, suicide ideation, homicidal ideation, and hallucinations, Allergy/Immunology: Negative for hives, rash, and allergies, Endocrine: Negative for neck swelling, polydipsia, polyuria, polyphagia, and marked weight changes, Hematologic/Lymphatic: Negative for swollen nodes, abnormal bleeding, and unusual bruising. 11:51 Neuro: Positive for headache. Exam: 11:51 Constitutional: This is a well developed, well nourished patient who is awake, alert, jah and in no acute distress. Head/Face: Normocephalic, atraumatic. Eyes: Pupils equal round and reactive to light, extra-ocular motions intact. Lids and lashes normal. Conjunctiva and sclera are non-icteric and not injected. Cornea within normal limits. Periorbital areas with no swelling, redness, or edema. ENT: Nares patent. No nasal discharge, no septal abnormalities noted. Tympanic membranes are normal and external auditory canals are clear. Oropharynx with no redness, swelling, or masses, exudates, or evidence of obstruction, uvula midline. Mucous membranes moist. Neck: Trachea midline, no thyromegaly or masses palpated, and no cervical lymphadenopathy. Supple, full range of motion without nuchal rigidity, or vertebral point tenderness. No Meningismus. Chest/axilla: Normal chest wall appearance and motion. Nontender with no deformity. No lesions are appreciated. Cardiovascular: Regular rate and rhythm with a normal S1 and S2. No gallops, murmurs, or rubs. Normal PMI, no JVD. No pulse deficits. Respiratory: Lungs have equal breath sounds bilaterally, clear to auscultation and percussion. No rales, rhonchi or wheezes noted. No increased work of breathing, no retractions or nasal flaring. Abdomen/GI: Soft, non-tender, with normal bowel sounds. No distension or tympany. No guarding or rebound. No evidence of tenderness throughout. Back: No spinal tenderness. No costovertebral tenderness. Full range of motion. Skin: Warm, dry with normal turgor. Normal color with no rashes, no lesions, and no evidence of cellulitis. MS/ Extremity: Pulses equal, no cyanosis. Neurovascular intact. Full, normal range of motion. Neuro: Awake and alert, GCS 15, oriented to person, place, time, and situation. Cranial nerves II-XII grossly intact. Motor strength 5/5 in all extremities. Sensory grossly intact. Cerebellar exam normal. Normal gait. Psych: Awake, alert, with orientation to person, place and time. Behavior, mood, and affect are within normal limits. 12:54 Neck: ROM/movement: Meningeal signs: are not present, Kernig's sign is negative, jah Brudzinski's sign is negative. Vital Signs: 11:35 BP 110 / 67; Pulse 64; Resp 18; Temp 98.4(O); Pulse Ox 100% on R/A; Weight 59.42 kg; em Height 5 ft. 2 in. (157.48 cm); Pain 9/10; 12:39 BP 133 / 74; Pulse 62; Resp 17; Temp 98.2(O); Pulse Ox 100% on R/A; mh5 11:35 Body Mass Index 23.96 (59.42 kg, 157.48 cm) em MDM: 11:09 Patient medically screened. [facility] 12:55 Data reviewed: vital signs, nurses notes, lab test result(s), radiologic studies, CT jah scan. 08/14 11:27 Order name: Urine Dipstick--Ancillary (enter results); Complete Time: 12:38 ag 08/14 11:27 Order name: Urine --Ancillary (enter results); Complete Time: 12:38 ag 08/14 11:45 Order name: CBC with Diff; Complete Time: 12:54 jah 08/14 11:45 Order name: Comprehensive Metabolic Panel; Complete Time: 12:58 jah 08/14 11:45 Order name: CT Head Brain wo Cont; Complete Time: 12:38 jah 08/14 12:39 Order name: Urine Culture [facility] 08/14 11:45 Order name: Oxygen; Complete Time: 12:24 [facility] Administered Medications: 12:24 Drug: NS 0.9% 1000 ml Route: IV; Rate: 1 bolus; Site: right antecubital; hj 13:10 Follow up: IV Status: Completed infusion; IV Intake: 1000ml em 12:24 Drug: TORadol 30 mg Route: IVP; Site: right antecubital; hj 13:15 Follow up: Response: No adverse reaction; Pain is decreased em 12:25 Drug: morphine 4 mg Route: IVP; Site: right antecubital; hj 13:15 Follow up: Response: No adverse reaction; Pain is decreased em 12:25 Drug: Zofran 4 mg Route: IVP; Site: right antecubital; hj 13:15 Follow up: Response: No adverse reaction; Pain is decreased em 13:05 Drug: Rocephin 1 grams Route: IV; Rate: calculated rate; Site: right antecubital; hj 13:30 Follow up: Response: No adverse reaction; IV Status: Completed infusion; IV Intake: 10mlem 13:09 Not Given (Other Intervention Used): Rocephin - (cefTRIAXone) 1 grams IVPB once over 30 hj mins; (mix in 50 mL NS) Disposition: 08/14/18 12:56 Discharged to Home. Impression: Migraine, Urinary tract infection, site not specified. - Condition is Stable. - Discharge Instructions: Migraine Headache, Urinary Tract Infection, Adult, Urinary Tract Infection, Adult, [id number]. - Prescriptions for Fioricet with Codeine 50- 325-40-30 mg Oral capsule - take 1 capsule by ORAL route every 4 hours as needed not to exceed 6 capsules per 24hrs; 24 capsule. Zofran 4 mg Oral Tablet - take 1 tablet by ORAL route every 12 hours As needed; 20 tablet. Macrobid 100 mg Oral Capsule - take 1 capsule by ORAL route every 12 hours for 7 days; 14 capsule. - Medication Reconciliation Form, Thank You Letter, Antibiotic Education, Prescription Opioid Use, Work release form form. - Follow up: Javed Alva; When: 2 - 3 days; Reason: Recheck today's complaints, Continuance of care, Re-evaluation by your physician. Follow up: Messi Ruffin; When: 2 - 3 days; Reason: Recheck today's complaints, Re-evaluation by your physician. - Problem is new. - Symptoms have improved. Signatures: Dispatcher [employer] Juan Littlejohn MD MD cha Munoz, Edgar, LPN HOME HEALTH LPN HOME HEALTH em Ryan Olson, RN RN hj Corrections: (The following items were deleted from the chart) 13:31 12:56 08/14/2018 12:56 Discharged to Home. Impression: Migraine; Urinary tract em infection, site not specified. Condition is Stable. Discharge Instructions: Migraine Headache, Urinary Tract Infection, Adult, Urinary Tract Infection, Adult, [id number]. Prescriptions for Fioricet with Codeine 99-124-89-30 mg Oral capsule - take 1 capsule by ORAL route every 4 hours as needed not to exceed 6 capsules per 24hrs; 24 capsule, Zofran 4 mg Oral Tablet - take 1 tablet by ORAL route every 12 hours As needed; 20 tablet, Macrobid 100 mg Oral Capsule - take 1 capsule by ORAL route every 12 hours for 7 days; 14 capsule. and Forms are Medication Reconciliation Form, Thank You Letter, Antibiotic Education, Prescription Opioid Use. Follow up: Javed Alva; When: 2 - 3 days; Reason: Recheck today's complaints, Continuance of care, Re-evaluation by your physician. Follow up: Messi Ruffin; When: 2 - 3 days; Reason: Recheck today's complaints, Re-evaluation by your physician. Problem is new. Symptoms have improved. jah
[2018-08-14] MEDS ORDERED: CEFTRIAXONE/SWI 1gm 1 GM/10 ML SYR ONE (13:05)
== END 2018-08-14 13:31 | disposition home or self-care (01) ==
LOC: ER 10:56
DX: G43.909 Migraine, unspecified, not intractable, without status migrainosus (principal); N39.0 Urinary tract infection, site not specified; I10 Essential (primary) hypertension; Z79.899 Other long term (current) drug therapy
CPT/HCPCS: 36415; 70450; 80053; 81003; 81025; 85025; 87077; 87086; 87088; 87186; 96361; 96365; 96375; 99284; J0696; J2405; J7030

== ENCOUNTER 2018-08-22 16:57 | Emergency (ER) | payer BC ==
--- OUTSIDE RECORDS SUMMARY | 2018-08-22 17:01 | XMS REPORT ---
:1985 [facility] Address [address] [place] [address] [address]. [address]ao [address] [place] [address] Care Team Providers Name Role Phone Unavailable Unavailable Unavailable Problems This patient has no known problems. Allergies, Adverse Reactions, Alerts This patient has no known allergies or adverse reactions. Medications This patient has no known medications.
[2018-08-22] MEDS ORDERED: NA CHLORIDE 0.9% 50 ML IV ONE (17:43)
[2018-08-22] MEDS ORDERED: DIPHENHYDRAMINE 50 MG/ML VIAL ONE (17:43)
[2018-08-22] MEDS ORDERED: METOCLOPRAMIDE 10 MG/2mL INJ ONE (17:43)
[2018-08-22] MEDS ORDERED: NA CHLORIDE 0.9% 1,000 ML ONE (17:43)
[2018-08-22] MEDS ORDERED: KETOROLAC 30 MG/ML INJ ONE (17:44)
--- NOTE | 2018-08-22 19:43 | EDPHYS ---
Physician Documentation [facility] Name: Selene Groves Age: 33 yrs Sex: Female : 1985 Arrival Date: 08/22/2018 Time: 17:01 Bed 25 Private MD: Javed Alva H ED Physician Juan Corrales HPI: 08/22 17:32 This 33 yrs old Female presents to ER via Ambulatory with complaints of jr8 Headache. 17:32 The patient complains of pain to the top of head, right synagogue and left synagogue. The jr8 patient describes the headache as throbbing. Onset: The symptoms/episode began/occurred acutely, yesterday. Associated signs and symptoms: Pertinent positives: nausea, paresthesias, Photophobia. Severity of symptoms: At its worst the pain was moderate, in the emergency department the pain is unchanged. Headache History: The patient has had previous headaches and this one is similar to previous episodes, and this one is more severe than previous episodes. The symptoms are alleviated by nothing. the symptoms are aggravated by lights, movement, noise. The patient has experienced similar episodes in the past, several times. The patient has been recently seen at the [facility] Emergency Department, last week, for similar complaints labs were performed, CT scan was performed, was given a prescription for pain medications, the patient was told to return for a recheck. came back to ED today for another migraine. Has tried OTC and prescribed medications without relief . 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 - Social history:: Smoking status: Patient/guardian denies using tobacco, Patient/guardian denies using alcohol. - Ebola Screening: : Patient negative for fever greater than or equal to 101.5 degrees Fahrenheit, and additional compatible Ebola Virus Disease symptoms Patient denies exposure to infectious person Patient denies travel to an Ebola-affected area in the 21 days before illness onset. ROS: 17:32 Eyes: Negative for injury, pain, redness, and discharge, ENT: Negative for injury, jr8 pain, and discharge, Neck: Negative for injury, pain, and swelling, Cardiovascular: Negative for chest pain, palpitations, and edema, Respiratory: Negative for shortness of breath, cough, wheezing, and pleuritic chest pain, Abdomen/GI: Negative for abdominal pain, nausea, vomiting, diarrhea, and constipation, Back: Negative for injury and pain, MS/Extremity: Negative for injury and deformity, Skin: Negative for injury, rash, and discoloration. 17:32 Neuro: Positive for headache, tingling, Negative for altered mental status, dizziness, gait disturbance, hearing loss, loss of consciousness, numbness, seizure activity, speech changes, syncope, near syncope, tinnitus, tremor, visual changes, weakness. Exam: 17:32 Eyes: Pupils equal round and reactive to light, extra-ocular motions intact. Lids and jr8 lashes normal. Conjunctiva and sclera are non-icteric and not injected. Cornea within normal limits. Periorbital areas with no swelling, redness, or edema. ENT: Nares patent. No nasal discharge, no septal abnormalities noted. Tympanic membranes are normal and external auditory canals are clear. Oropharynx with no redness, swelling, or masses, exudates, or evidence of obstruction, uvula midline. Mucous membranes moist. Neck: Trachea midline, no thyromegaly or masses palpated, and no cervical lymphadenopathy. Supple, full range of motion without nuchal rigidity, or vertebral point tenderness. No Meningismus. Cardiovascular: Regular rate and rhythm with a normal S1 and S2. No gallops, murmurs, or rubs. Normal PMI, no JVD. No pulse deficits. Respiratory: Lungs have equal breath sounds bilaterally, clear to auscultation and percussion. No rales, rhonchi or wheezes noted. No increased work of breathing, no retractions or nasal flaring. Abdomen/GI: Soft, non-tender, with normal bowel sounds. No distension or tympany. No guarding or rebound. No evidence of tenderness throughout. Back: No spinal tenderness. No costovertebral tenderness. Full range of motion. Skin: Warm, dry with normal turgor. Normal color with no rashes, no lesions, and no evidence of cellulitis. MS/ Extremity: Pulses equal, no cyanosis. Neurovascular intact. Full, normal range of motion. Neuro: Awake and alert, GCS 15, oriented to person, place, time, and situation. Cranial nerves II-XII grossly intact. Motor strength 5/5 in all extremities. Sensory grossly intact. Cerebellar exam normal. Normal gait. Vital Signs: 17:09 BP 101 / 55; Pulse 65; Resp 18; Temp 97.8(TE); Pulse Ox 100% on R/A; Weight 59.42 kg; hj Height 5 ft. 2 in. (157.48 cm); Pain 9/10; 19:05 BP 97 / 55; Pulse 61; Resp 18; Pulse Ox 100% on R/A; Pain 0/10; mg2 19:50 BP 97 / 60; Pulse 62; Resp 18; Pulse Ox 100% on R/A; Pain 0/10; mg2 17:09 Body Mass Index 23.96 (59.42 kg, 157.48 cm) MDM: 17:12 Patient medically screened. jr8 19:41 Data reviewed: vital signs, nurses notes, old medical records, and as a result, I will jr8 discharge patient. Data interpreted: Pulse oximetry: on room air is 100 %. Interpretation: normal. Counseling: I had a detailed discussion with the patient and/or guardian regarding: the historical points, exam findings, and any diagnostic results supporting the discharge/admit diagnosis, lab results, radiology results, the need for outpatient follow up, a neurologist, to return to the emergency department if symptoms worsen or persist or if there are any questions or concerns that arise at home. Response to treatment: the patient's symptoms have markedly improved after treatment, patient is well hydrated. 08/22 17:25 Order name: IV; Complete Time: 17:55 jr8 Administered Medications: 17:55 Drug: Benadryl 25 mg Route: IVP; Site: left antecubital; mg2 19:00 Follow up: Response: No adverse reaction; Marked relief of symptoms mg2 17:55 Drug: TORadol 30 mg Route: IVP; Site: left antecubital; mg2 19:00 Follow up: Response: No adverse reaction; Marked relief of symptoms mg2 17:56 Drug: NS 0.9% 1000 ml Route: IV; Rate: 1000 ml; Site: left antecubital; mg2 19:58 Follow up: Response: No adverse reaction; IV Status: Completed infusion mg2 17:56 Drug: Reglan 10 mg Route: IVP; Site: left antecubital; mg2 19:58 Follow up: Response: No adverse reaction; Marked relief of symptoms mg2 Disposition: 08/23 06:49 Co-signature as Attending Physician, Juan Corrales MD I agree with the assessment and jah plan of care. Disposition: 08/22/18 19:42 Discharged to Home. Impression: Migraine. - Condition is Stable. - Discharge Instructions: Migraine Headache. - Medication Reconciliation Form, Thank You Letter, Antibiotic Education, Prescription Opioid Use form. - Follow up: Messi Ruffin MD; When: 10 - 14 days; Reason: Recheck today's complaints, Continuance of care, Re-evaluation by your physician. - Problem is new. - Symptoms have improved. Signatures: Juan Corrales MD MD cha Roszak, Josh, PA PA jr8 Ryan Olson RN RN Esequiel gArawal RN RN mg2 Corrections: (The following items were deleted from the chart) 08/22 20:00 19:42 08/22/2018 19:42 Discharged to Home. Impression: Migraine. Condition is Stable. mg2 Forms are Medication Reconciliation Form, Thank You Letter, Antibiotic Education, Prescription Opioid Use. Follow up: Messi Ruffin; When: 10 - 14 days; Reason: Recheck today's complaints, Continuance of care, Re-evaluation by your physician. Problem is new. Symptoms have improved. jr8
--- NOTE | 2018-08-22 19:43 | ER ---
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 Transition of care: patient was not received from another setting of care. Onset of symptoms was August 22, 2018. Risk Assessment: Do you want to hurt yourself or someone else? Patient reports no desire to harm self or others. Initial Sepsis Screen: Does the patient meet any 2 criteria? No. Patient's initial sepsis screen is negative. Does the patient have a suspected source of infection? No. Patient's initial sepsis screen is negative. Care prior to arrival: None. 17:06 Method Of Arrival: Ambulatory 17:06 Acuity: LUCÍA 3 Triage Assessment: 17:08 Headache History: The patient has had previous headaches and this one is similar to previous episodes. General: Appears in no apparent distress. uncomfortable. General: Appears Behavior is calm, cooperative, appropriate for age. Pain: Complains of pain in head Pain currently is 9 out of 10 on a pain scale. Pain began tthis AM' Also complains of nausea. Neuro: Level of Consciousness is awake, alert, obeys commands, Oriented to person, place, time, situation, Appropriate for age. 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 - Social history:: Smoking status: Patient/guardian denies using tobacco, Patient/guardian denies using alcohol. - Ebola Screening: : Patient negative for fever greater than or equal to 101.5 degrees Fahrenheit, and additional compatible Ebola Virus Disease symptoms Patient denies exposure to infectious person Patient denies travel to an Ebola-affected area in the 21 days before illness onset. Screenin:08 Abuse screen: Denies threats or abuse. Denies injuries from another. Nutritional hj screening: No deficits noted. Tuberculosis screening: No symptoms or risk factors identified. Fall Risk None identified. Assessment: 17:56 General: Appears in no apparent distress. comfortable, Behavior is calm, cooperative. mg2 Pain: Complains of pain in head Pain does not radiate. Pain currently is 9 out of 10 on a pain scale. Quality of pain is described as aching, Pain began gradually, 1 day ago. Is intermittent. Neuro: Level of Consciousness is awake, alert, obeys commands, Oriented to person, place, time, situation. Neuro: Reports headache frontal area, since today. Cardiovascular: Capillary refill < 3 seconds Patient's skin is warm and dry. Respiratory: Airway is patent Respiratory effort is even, unlabored, Respiratory pattern is regular, symmetrical. GI: No signs and/or symptoms were reported involving the gastrointestinal system. : No signs and/or symptoms were reported regarding the genitourinary system. EENT: No signs and/or symptoms were reported regarding the EENT system. Derm: Skin is intact, is healthy with good turgor, Skin is pink, warm \T\ dry. normal. Musculoskeletal: No deficits noted. 19:04 Reassessment: Patient appears in no apparent distress at this time. Patient and/or mg2 family updated on plan of care and expected duration. Pain level reassessed. Patient is alert, oriented x 3, equal unlabored respirations, skin warm/dry/pink. patient is pain-free now.. Vital Signs: 17:09 BP 101 / 55; Pulse 65; Resp 18; Temp 97.8(TE); Pulse Ox 100% on R/A; Weight 59.42 kg; hj Height 5 ft. 2 in. (157.48 cm); Pain 9/10; 19:05 BP 97 / 55; Pulse 61; Resp 18; Pulse Ox 100% on R/A; Pain 0/10; mg2 19:50 BP 97 / 60; Pulse 62; Resp 18; Pulse Ox 100% on R/A; Pain 0/10; mg2 17:09 Body Mass Index 23.96 (59.42 kg, 157.48 cm) ED Course: 17:01 Patient arrived in ED. mr 17:01 Javed Alva DO is Private Physician. mr 17:07 Triage completed. hj 17:09 Arm band placed on right wrist. hj 17:10 Patient has correct armband on for positive identification. Placed in gown. Bed in low hj position. Call light in reach. Side rails up X 1. 17:12 Alan Lopes PA is PHCP. jr8 17:12 Juan Corrales MD is Attending Physician. jr8 17:30 Esequiel Agrawal, ROBBIE is Primary Nurse. mg2 17:58 No provider procedures requiring assistance completed. Inserted saline lock: 20 gauge mg2 in left antecubital area, using aseptic technique. 19:42 Messi Ruffin MD is Referral Physician. jr8 19:59 IV discontinued, intact, bleeding controlled, No redness/swelling at site. Pressure mg2 dressing applied. Administered Medications: 17:55 Drug: Benadryl 25 mg Route: IVP; Site: left antecubital; mg2 19:00 Follow up: Response: No adverse reaction; Marked relief of symptoms mg2 17:55 Drug: TORadol 30 mg Route: IVP; Site: left antecubital; mg2 19:00 Follow up: Response: No adverse reaction; Marked relief of symptoms mg2 17:56 Drug: NS 0.9% 1000 ml Route: IV; Rate: 1000 ml; Site: left antecubital; mg2 19:58 Follow up: Response: No adverse reaction; IV Status: Completed infusion mg2 17:56 Drug: Reglan 10 mg Route: IVP; Site: left antecubital; mg2 19:58 Follow up: Response: No adverse reaction; Marked relief of symptoms mg2 Outcome: 19:42 Discharge ordered by . jr8 19:59 Discharged to home ambulatory. mg2 19:59 Condition: good 19:59 Discharge instructions given to patient, Instructed on discharge instructions, follow up and referral plans. Demonstrated understanding of instructions, follow-up care. 20:00 Patient left the ED. mg2 Signatures: Nilsa Hinkle mr Alan Lopes PA PA jr8 Ryan Olson RN RN Esequiel Agrawal RN RN mg2 Corrections: (The following items were deleted from the chart) 17:11 17:09 Pulse 65bpm; Resp 18bpm; Pulse Ox 100% RA; Temp 97.8F Temporal; 59.42 kg; Height hj 5 ft. 2 in.; BMI: 23.9; Pain 9/10; hj 19:07 19:05 BP 97 / 55; Pulse 58bpm; Resp 18bpm; Pulse Ox 100% RA; Pain 0/10; mg2 mg2
== END 2018-08-22 20:00 | disposition home or self-care (01) ==
LOC: ER 16:57
DX: G43.909 Migraine, unspecified, not intractable, without status migrainosus (principal); I10 Essential (primary) hypertension
CPT/HCPCS: 96361; 96374; 96375; 99283; J2765; J7030

== ENCOUNTER 2018-09-09 17:29 | Observation (INO) | payer BC ==
--- NOTE | 2018-09-09 18:21 | RAD REPORT ---
EXAM DESCRIPTION: RAD - Chest Single View - 09/09/2018 6:16 pm CLINICAL HISTORY: syncope Chest pain. COMPARISON: Hand Right 3 View dated 06/01/2018; Hand Right 3 View dated 02/26/2018Knee Left 3 View da adryan 03/11/2018No comparisonsChest Single View dated 11/22/2017 FINDINGS: Portable technique limits examination quality. The lungs are grossly clear. The heart is normal in size. No displaced fractures. IMPRESSION: No acute intrathoracic process suspected.
--- OUTSIDE RECORDS SUMMARY | 2018-09-09 18:23 | XMS REPORT ---
:1985 Author [facility] Address [address] [place] [address] [address] [place] [address] Care Team Providers Name Role Phone Unavailable Unavailable Unavailable Problems This patient has no known problems. Allergies, Adverse Reactions, Alerts This patient has no known allergies or adverse reactions. Medications This patient has no known medications.
[2018-09-09 18:39] LABS: Protime INR 1.01
[2018-09-09 18:40] LABS: Absolute Lymphocytes (CBC) 1.3 K/uL (0.7-4.9); Absolute Monocytes 0.5 K/uL (0.1-1.3); Absolute Neutrophil 6.3 K/uL (1.8-8.0); Basophils % 0.5 % (0-1.3); Eosinophils % 1.7 % (0-4.4); Hematocrit 40.5 % (36.0-45.0); Lymphocytes % 16.1 % (15.3-44.8); MPV 8.4 fL (7.6-11.3); Monocytes % 6.5 % (3.3-12.3); RBC Red Blood Cell Count 4.43 M/uL (3.86-4.86)
[2018-09-09 18:43] LABS: ALT/SGPT 19 U/L (12-78); AST/SGOT 8 U/L (15-37); Albumin 3.3 g/dL (3.4-5.0); Alkaline Phosphatase 52 U/L (45-117); BUN Blood Urea Nitrogen 15 mg/dL (7-18); Bicarbonate 25 mmol/L (21-32); Bilirubin Direct < 0.1 mg/dL (0-0.2); Bilirubin Total 0.4 mg/dL (0.2-1.0); Glucose Level 82 mg/dL (74-106); Magnesium 1.9 mg/dL (1.8-2.4); NT PRO-BNP 180 pg/mL (<125); Potassium 4.3 mmol/L (3.5-5.1); Protein, Total 6.3 g/dL (6.4-8.2); Sodium Level 145 mmol/L (136-145); Troponin (Emerg Dept Use Only) < 0.02 ng/mL (0.0-0.045)
[2018-09-09] MEDS ORDERED: ACETAMINOPHEN 500 MG TAB PO PRN (20:08)
[2018-09-09] MEDS ORDERED: ONDANSETRON 4 MG/2 ML VIAL IV PRN (20:08)
--- NOTE | 2018-09-09 20:09 | ER ---
Nurse's Notes [facility] Name: Selene Groves Age: 33 yrs Sex: Female : 1985 Arrival Date: 09/09/2018 Time: 17:33 Bed 5 Private MD: Javed Alva H Diagnosis: Syncope and collapse Presentation: 09/09 17:44 Presenting complaint: Patient states: "I woke up around 2 and I wasn't feeling well. I aj1 had sex with my fiance and afterwards I was hurting so bad that I felt like I was going to pass out, so I went to lay down and I passed out and then later I passed out again. " Patient states that both times she was laying in bed when she passed out. Reports pelvic pain. Patient denies any abnormal vaginal discharge. Patient reports dizziness. Transition of care: patient was not received from another setting of care. Onset of symptoms was September 09, 2018. Risk Assessment: Do you want to hurt yourself or someone else? Patient reports no desire to harm self or others. Initial Sepsis Screen: Does the patient meet any 2 criteria? No. Patient's initial sepsis screen is negative. Does the patient have a suspected source of infection? Yes: Acute abdominal pain. Care prior to arrival: None. 17:44 Method Of Arrival: Ambulatory aj1 17:44 Acuity: LUCÍA 2 aj1 Triage Assessment: 17:48 General: Appears in no apparent distress. uncomfortable, Behavior is calm, cooperative, aj1 appropriate for age. Pain: Complains of pain in suprapubic area, right inguinal area and left inguinal area Pain currently is 8 out of 10 on a pain scale. 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 - Social history:: Smoking status: Patient/guardian denies using tobacco. - Ebola Screening: : Patient denies travel to an Ebola-affected area in the 21 days before illness onset. Screenin:20 Abuse screen: Denies threats or abuse. Denies injuries from another. Nutritional sg screening: No deficits noted. Tuberculosis screening: No symptoms or risk factors identified. Never had TB. Fall Risk None identified. Assessment: 18:20 General: Appears in no apparent distress. uncomfortable, well groomed, well developed, sg well nourished, Behavior is calm, cooperative, appropriate for age. Pain: Complains of pain in suprapubic area Quality of pain is described as aching. Neuro: Level of Consciousness is awake, alert, obeys commands, Oriented to person, place, time, Steward/Stewardess Club Car are equal bilaterally Moves all extremities. Speech is normal, Facial symmetry appears normal. Cardiovascular: Patient's skin is warm and dry. Chest pain is denied. Respiratory: Airway is patent Respiratory effort is even, unlabored, Respiratory pattern is regular, symmetrical. GI: Abdomen is round non-distended, Bowel sounds present X 4 quads. Abd is soft X 4 quads Abdomen is tender to palpation in suprapubic area, right lower quadrant and left lower quadrant. : Reports pain in suprapubic area. EENT: No signs and/or symptoms were reported regarding the EENT system. Derm: Skin is pink, warm \\T\\ dry. Musculoskeletal: No signs and/or symptoms reported regarding the musculoskeletal system. 23:00 Reassessment: Patient and/or family updated on plan of care and expected duration. Pain bb level reassessed. Patient is alert, oriented x 3, equal unlabored respirations, skin warm/dry/pink. pt states she continues to have abdominal pain and a headache pt medicated per admission orders see MAR pt understands and agrees to plan of care pt awaiting room assignment and notified of ED hold status. Vital Signs: 17:48 BP 111 / 48; Pulse 40; Resp 18; Temp 97.8; Pulse Ox 100% on R/A; Weight 59.42 kg (M); aj1 Height 5 ft. 2 in. (157.48 cm) (M); Pain 8/10; 18:44 BP 106 / 55; Pulse 45 LC; Resp 17; Pulse Ox 98% ; sg 23:00 BP 106 / 68; Pulse 70; Resp 14 S; Pulse Ox 100% on R/A; bb 17:48 Body Mass Index 23.96 (59.42 kg, 157.48 cm) aj1 Vitals: 18:44 Cardiac Rhythm Assessment Sinus norma W/unifocal PVC's. ED Course: 17:33 Patient arrived in ED. mr 17:33 Javed Alva DO is Private Physician. mr 17:47 Triage completed. aj1 17:48 Arm band placed on Patient placed in an exam room. aj1 17:52 Rafat Vazquez, RN is Primary Nurse. 17:57 Bryce Garcia PA is PHCP. [facility] 17:57 Surya Pereira MD is Attending Physician. m 18:16 XRAY Chest (1 view) In Process Unspecified. EDMS 18:20 No provider procedures requiring assistance completed. 19:10 Naomy Porras, ROBBIE is Primary Nurse. tl1 20:08 Kwan Martinez MD is Hospitalizing Provider. [facility] 23:00 monitor tech on. Pulse ox on. NIBP on. bb 09/10 00:11 Patient has correct armband on for positive identification. Bed in low position. Call bb light in reach. Side rails up X 1. 00:13 Patient admitted, IV remains in place. bb Administered Medications: No medications were administered Outcome: 09/09 20:08 Decision to Hospitalize by Provider. [facility] 23:00 Admitted to ER Hold. Please see [facility] for further documentation. bb 23:00 Instructed on the need for admit. 09/10 00:13 Condition: stable bb 03:53 Patient left the ED. bb Signatures: Dispatcher [employer] EDMS Shayy Arevalo, RN RN aj Rafat Vazquez, RN ROBBIE Bryce Garcia PA PA [facility] Nilsa Hinkle Brenda, RN RN bb Naomy Porras, RN RN tl1
--- NOTE | 2018-09-09 20:09 | EDPHYS ---
Physician Documentation [facility] Name: Selene Groves Age: 33 yrs Sex: Female : 1985 Arrival Date: 09/09/2018 Time: 17:33 Bed 5 Private MD: Javed Alva H ED Physician Surya Pereira HPI: 09/09 18:05 This 33 yrs old Female presents to ER via Ambulatory with complaints of jmm Abdominal Pain, Passed Out Prior To Arrival. 18:05 The patient presents with abdominal pain in the lower abdomen. Onset: The jmm symptoms/episode began/occurred acutely, today, at 15:00. Associated signs and symptoms: Pertinent negatives: chest pain, shortness of breath. This is a 33 year old female with a history of migraines, htn that presents to the ED with complaints of pelvic/abdominal pain after intercourse and two episodes of syncope. Patient denies previous episodes in the past. Denies chest pain. . 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 - Social history:: Smoking status: Patient/guardian denies using tobacco. - Ebola Screening: : Patient denies travel to an Ebola-affected area in the 21 days before illness onset. ROS: 18:05 Constitutional: Negative for fever, chills, and weight loss, Cardiovascular: Negative jmm for chest pain, palpitations, and edema, Respiratory: Negative for shortness of breath, cough, wheezing, and pleuritic chest pain. 18:05 Abdomen/GI: Positive for abdominal pain. 18:05 Neuro: Positive for syncope. 18:05 All other systems are negative. Exam: 18:05 Head/Face: atraumatic. Eyes: EOMI, no conjunctival erythema appreciated ENT: Moist jmm Mucus Membranes Neck: Trachea midline, Supple Chest/axilla: Normal chest wall appearance and motion. 18:05 Constitutional: The patient appears in no acute distress, alert, awake. 18:05 Cardiovascular: Rate: normal, Rhythm: regular, Pulses: no pulse deficits are appreciated. 18:05 Respiratory: the patient does not display signs of respiratory distress, Respirations: normal, Breath sounds: are clear throughout. 18:05 Abdomen/GI: Inspection: abdomen appears normal, Bowel sounds: normal, Palpation: abdomen is soft and non-tender, in all quadrants. 18:05 Back: ROM is normal. 18:05 Musculoskeletal/extremity: ROM: intact in all extremities. 18:05 Skin: Appearance: Color: normal in color. 18:05 Neuro: Orientation: is normal, Mentation: is normal, Memory: is normal. 18:05 Psych: Behavior/mood is pleasant, cooperative. Vital Signs: 17:48 BP 111 / 48; Pulse 40; Resp 18; Temp 97.8; Pulse Ox 100% on R/A; Weight 59.42 kg (M); aj1 Height 5 ft. 2 in. (157.48 cm) (M); Pain 8/10; 18:44 BP 106 / 55; Pulse 45 LC; Resp 17; Pulse Ox 98% ; sg 23:00 BP 106 / 68; Pulse 70; Resp 14 S; Pulse Ox 100% on R/A; bb 17:48 Body Mass Index 23.96 (59.42 kg, 157.48 cm) aj1 MDM: 18:05 Patient medically screened. [facility] 20:07 Data reviewed: vital signs, nurses notes, lab test result(s), EKG, radiologic studies, [facility] plain films. Counseling: I had a detailed discussion with the patient and/or guardian regarding: the historical points, exam findings, and any diagnostic results supporting the discharge/admit diagnosis, lab results, the need for further work-up and treatment in the hospital. ED course: I discussed the patient with Dr. Martinez whom accepted admission. . 09/09 18:08 Order name: Basic Metabolic Panel; Complete Time: 18:47 [facility] 09/09 18:08 Order name: CBC with Diff; Complete Time: 18:47 [facility] 09/09 18:08 Order name: LFT's; Complete Time: 18:47 [facility] 09/09 18:08 Order name: Magnesium; Complete Time: 18:47 [facility] 09/09 18:08 Order name: NT PRO-BNP; Complete Time: 18:47 [facility] 09/09 18:08 Order name: PT-INR; Complete Time: 18:47 [facility] 09/09 18:08 Order name: Troponin (emerg Dept Use Only); Complete Time: 18:47 [facility] 09/09 20:10 Order name: CBC with Automated Diff [facility] 09/09 20:10 Order name: CBC with Automated Diff [facility] 09/09 20:10 Order name: Comprehensive Metabolic Panel [facility] 09/09 20:10 Order name: Comprehensive Metabolic Panel [facility] 09/09 21:09 Order name: Urine Dipstick--Ancillary (enter results) [facility] 09/09 21:09 Order name: Urine --Ancillary (enter results) [facility] 09/09 21:24 Order name: Urine --Ancillary; Complete Time: 21:28 [facility] 09/09 18:08 Order name: XRAY Chest (1 view); Complete Time: 18:28 [facility] 09/09 18:08 Order name: EKG; Complete Time: 18:09 [facility] 09/09 18:08 Order name: Cardiac monitoring; Complete Time: 18:20 [facility] 09/09 18:08 Order name: EKG - Nurse/Tech; Complete Time: 18:29 [facility] 09/09 18:08 Order name: IV Saline Lock; Complete Time: 18:21 [facility] 09/09 18:08 Order name: Labs collected and sent; Complete Time: 18:20 [facility] 09/09 18:08 Order name: O2 Per Protocol; Complete Time: 18:21 [facility] 09/09 18:08 Order name: O2 Sat Monitoring; Complete Time: 18:21 [facility] 09/09 18:10 Order name: Urine Dipstick-Ancillary (obtain specimen); Complete Time: 20:55 [facility] 09/09 18:10 Order name: Urine Test (obtain specimen); Complete Time: 20:55 [facility] 09/09 19:25 Order name: Misc. Order: assistance to restroom; Complete Time: 20:55 [facility] 09/09 20:10 Order name: CONS Pharmacy Consult [facility] 09/09 20:10 Order name: Heart Healthy [facility] 09/09 20:10 Order name: EKG Electrocardiogram [facility] 09/09 20:10 Order name: EKG Electrocardiogram [facility] 09/09 21:24 Order name: Urine Dipstick-Ancillary; Complete Time: 21:28 EDMS Administered Medications: No medications were administered Disposition: 09/09/18 20:08 Hospitalization ordered by Kwan Martinez for Observation. Preliminary diagnosis is Syncope and collapse. - Bed requested for Telemetry/MedSurg (observation). - Status is Observation. bb - Condition is Stable. - Problem is new. - Symptoms have improved. UTI on Admission? No Addendum: 09/12/2018 07:17 Co-signature as Attending Physician, Surya Pereira MD I agree with the assessment and k dr plan of care. Signatures: Dispatcher [employer] EDMS Shayy Arevalo, RN RN aj1 Sonja Camejo RN RN Surya Pereira MD MD [facility] Bryce Garcia PA PA [facility] Bhumika Momin RN RN bb Corrections: (The following items were deleted from the chart) 09/09 20:36 20:08 Hospitalization Ordered by Kwan Martinez MD for Observation. Preliminary diagnosis is Syncope and collapse. Bed requested for Telemetry/MedSurg (observation). Status is Observation. Condition is Stable. Problem is new. Symptoms have improved. UTI on Admission? No. [facility] 09/10 03:22 09/09 20:36 09/09/2018 20:08 Hospitalization Ordered by Kwan Martinez MD for Observation. Preliminary diagnosis is Syncope and collapse. Bed requested for [facility] ER HOLD. Status is Observation. Condition is Stable. Problem is new. Symptoms have improved. UTI on Admission? No. 09/10 03:53 03:22 09/09/2018 20:08 Hospitalization Ordered by Kwan Martinez MD for Observation. bb Preliminary diagnosis is Syncope and collapse. Bed requested for Telemetry/MedSurg (observation). Status is Observation. Condition is Stable. Problem is new. Symptoms have improved. UTI on Admission? No. mw
[2018-09-09] MEDS: NA CHLORIDE 0.9% 1,000 ML IV SCH (21:00)
[2018-09-09 21:24] LABS: Urine Blood NEGATIVE (NEG); Urine Glucose NEGATIVE (NEG); Urine Protein NEGATIVE (NEG); Urine Specific Gravity 1.015 (1.005-1.030); Urine pH 7.5 (5.0-7.0)
[2018-09-09] MEDS: MORPHINE 4 MG/ML SYR IV PRN (23:14)
[2018-09-09] MEDS ORDERED: NA CHLORIDE 0.9% 1,000 ML ONE (23:27)
[2018-09-09] MEDS ORDERED: ONDANSETRON 4 MG/2 ML VIAL ONE (23:27)
[2018-09-09] MEDS ORDERED: MORPHINE 4 MG/ML SYR ONE (23:27)
[2018-09-10] MEDS: MORPHINE 4 MG/ML SYR IV PRN ×2 (04:27→09:04)
[2018-09-10] MEDS: NA CHLORIDE 0.9% 1,000 ML IV SCH ×2 (04:29→09:11)
[2018-09-10 05:54] LABS: Urine Appearance CLOUDY; Urine Bilirubin NEGATIVE (NEG); Urine Blood NEGATIVE (NEG); Urine Color YELLOW; Urine Glucose NEGATIVE (NEG); Urine Protein NEGATIVE (NEG)
[2018-09-10 06:02] LABS: Urine Bacteria >50 /HPF (<20); Urine Culture Reflex Order REFLEXED; Urine RBC NONE SEEN /HPF (NONE SEEN)
[2018-09-10 06:35] LABS: Absolute Lymphocytes (CBC) 1.8 K/uL (0.7-4.9); Absolute Monocytes 0.5 K/uL (0.1-1.3); Absolute Neutrophil 4.4 K/uL (1.8-8.0); Basophils % 0.7 % (0-1.3); Eosinophils % 3.4 % (0-4.4); Hematocrit 39.1 % (36.0-45.0); RBC Red Blood Cell Count 4.26 M/uL (3.86-4.86)
[2018-09-10 06:52] LABS: ALT/SGPT 17 U/L (12-78); AST/SGOT 7 U/L (15-37); Alkaline Phosphatase 48 U/L (45-117); BUN Blood Urea Nitrogen 12 mg/dL (7-18); Bicarbonate 25 mmol/L (21-32); Bilirubin Total 0.2 mg/dL (0.2-1.0); Glucose Level 95 mg/dL (74-106); Potassium 4.1 mmol/L (3.5-5.1); Sodium Level 143 mmol/L (136-145)
[2018-09-10] MEDS ORDERED: SUMATRIPTAN SUCCI 50 MG TAB PO PRN (07:19)
--- NOTE | 2018-09-10 07:47 | EKG ---
Test Date: 2018-09-09 Test Time: 18:23:32 Prime Broker: MEASUREMENT RESULTS: Intervals: Rate: 75 MA: 138 QRSD: 90 QT: 388 QTc: 433 [place]: P: 37 MA: 138 QRS: 34 T: 42 INTERPRETIVE STATEMENTS: Sinus rhythm with frequent premature ventricular complexes Low voltage QRS Borderline ECG Compared to ECG 11/22/2017 18:29:49 Ventricular premature complex(es) now present Low QRS voltage now present Electronically Signed On 09-10-18 07:46:36 SENIOR OFFICER by Panchito Gutiérrez
[2018-09-10] MEDS ORDERED: TOPIRAMATE 25 MG TAB PO SCH (09:00)
[2018-09-10] MEDS ORDERED: METOPROLOL TAR 25 MG TAB PO SCH (09:00)
[2018-09-10] MEDS ORDERED: NORETHINDRONE E ESTRADIOL IRON PO SCH (09:00)
[2018-09-10] MEDS ORDERED: CEFTRIAXONE/SWI 1gm 1 GM/10 ML SYR IVP ONE (10:00)
--- NOTE | 2018-09-10 11:24 | EKG ---
Test Date: 2018-09-10 Test Time: 08:40:18 Agribusiness Professor: JEREL MEASUREMENT RESULTS: Intervals: Rate: 83 MI: 138 QRSD: 94 QT: 398 QTc: 467 [place]: P: 25 MI: 138 QRS: 17 T: 26 INTERPRETIVE STATEMENTS: Sinus rhythm with premature ventricular complexes Low voltage QRS Borderline ECG Compared to ECG 09/09/2018 18:23:32 no significant change from previous ECG Electronically Signed On 09-10-18 11:23:54 TAFE LECTURER by Panchito Gutiérrez
--- NOTE | 2018-09-10 11:39 | P.HP ---
Certification for Inpatient Patient admitted to: Observation With expected LOS: <2 Midnights Patient will require the following post-hospital care: None Practitioner: I am a practitioner with admitting privileges, knowledge of patient current condition, hospital course, and medical plan of care. Services: Services provided to patient in accordance with Admission requirements found in Title 42 Section 412.3 of the Code of Federal Regulations Patient History Date of Service: 09/09/18 Reason for admission: Migraine headache and abdominal pain History of Present Illness: Patient is a 33-year-old female with a history of migraine and abdominal pain. She has had workup in the past for her abdominal pain. She was told she possibly could have cervical cancer. She has also had workup for her migraine. This was related to hypertension. Patient had extensive workup including MRI and spinal fluid tap. She was started on Imitrex and Topamax for her headaches. For her abdominal pain she is followed up at [facility]. She seen the gynecologists since there was concern she may have cervical cancer. She had a Pap smear but it was not definitive according to the patient. She was set up to see our local concrete truck driver last week but the appointment was canceled. Patient came into our hospital because her abdominal pain was worsening and her headache was worsening as well. She believes the Topamax and Imitrex are not helping her. She was admitted to the hospital for further evaluation Allergies No Known Allergies Allergy (Verified 09/10/18 04:21) Home Medications: Topiramate [Topamax*] 25 mg PO BEDTIME #30 tab 11/24/17 Amox/Clavulanate [Augmentin 500-125 mg Tab] 500 mg PO BID #14 tab 09/10/18 Metoprolol Tartrate 1 tab PO DAILY 09/10/18 Norethindrone-E.estradiol-Iron [Loestrin Fe 1-20 Tablet] 1 tab PO DAILY Sumatriptan [Imitrex*] 25 mg PO PRN PRN 09/10/18 - Past Medical/Surgical History Diabetic: No -: hypertension -: migraines -: Denies any hx of sx - Family History Father Medical History: Hypertension - Social History Smoking Status: Never smoker Alcohol use: Yes CD- Drugs: No Caffeine use: Yes Place of Residence: Home Review of Systems 10-point ROS is otherwise unremarkable Physical Examination - Vital Signs Temperature: 97.4 F Blood Pressure: 95/50 Pulse: 69 Respirations: 16 Pulse Ox (%): 100 - Physical Exam General: Alert, In no apparent distress, Oriented x3 HEENT: Atraumatic, PERRLA, Mucous membr. moist/pink, EOMI, Sclerae nonicteric Neck: Supple, 2+ carotid pulse no bruit, No LAD, Without JVD or thyroid abnormality Respiratory: Clear to auscultation bilaterally, Normal air movement Cardiovascular: Regular rate/rhythm, Normal S1 S2, No murmurs Gastrointestinal: Normal bowel sounds, Soft and benign, Non-distended, Tenderness Musculoskeletal: No clubbing, No swelling, No tenderness Integumentary: No rashes Neurological: Normal gait, Normal speech, Normal strength at 5/5 x4 extr, Normal tone, Sensation intact, Cranial nerves 3-12 intact, Normal affect Lymphatics: No axilla or inguinal lymphadenopathy - Studies Laboratory Data (last 24 hrs) 09/09/18 18:19: PT 11.9, INR 1.01 09/09/18 18:19: WBC 8.3, Hgb 13.8, Hct 40.5, Plt Count 254 09/09/18 18:19: Sodium 145, Potassium 4.3, BUN 15, Creatinine 0.56, Glucose 82, Magnesium 1.9, Total Bilirubin 0.4, AST 8 L, ALT 19, Alkaline Phosphatase 52 Assessment & Plan - Problems (Diagnosis) (1) Migraine headache Current Visit: Yes Status: Acute (2) Abdominal pain Current Visit: Yes Status: Acute (3) History of use of contraceptive intrauterine device (IUD) Current Visit: Yes Status: Acute - Plan plan: 1. Increase Topamax to 25 twice a day. Gynecology consultation. IV hydration. Pain control. As anticipate discharge in the next 24-48 hours after recommendation from ada accommodation consultant. Hopefully increase in the dose of Topamax along with subcu Imitrex as needed will control her headache. will keep her under observation for the next 24-48 hours until the headache improves Discharge Plan: Home Plan to discharge in: 24 Hours - Advance Directives Does patient have a Living Will: No Does patient have a Durable POA for Healthcare: No - Code Status/Comfort Care Code Status Assessed: Yes Code Status: Full Code Critical Care: No Time Spent Managing PTS Care (In Minutes): 45
--- NOTE | 2018-09-10 11:53 | P.SSS ---
Patient History Date of Service: 09/10/18 Reason for admission: Migraine headache and abdominal pain History of Present Illness: Patient is a 33-year-old female with a history of migraine and abdominal pain. She has had workup in the past for her abdominal pain. She was told she possibly could have cervical cancer. She has also had workup for her migraine. This was related to hypertension. Patient had extensive workup including MRI and spinal fluid tap. She was started on Imitrex and Topamax for her headaches. For her abdominal pain she is followed up at [facility]. She seen the gynecologists since there was concern she may have cervical cancer. She had a Pap smear but it was not definitive according to the patient. She was set up to see our local forestry faculty member last week but the appointment was canceled. Patient came into our hospital because her abdominal pain was worsening and her headache was worsening as well. She believes the Topamax and Imitrex are not helping her. She was admitted to the hospital for further evaluation Allergies No Known Allergies Allergy (Verified 09/10/18 04:21) Home Medications: Topiramate [Topamax*] 25 mg PO BEDTIME #30 tab 11/24/17 Amox/Clavulanate [Augmentin 500-125 mg Tab] 500 mg PO BID #14 tab 09/10/18 Metoprolol Tartrate 1 tab PO DAILY 09/10/18 Norethindrone-E.estradiol-Iron [Loestrin Fe 1-20 Tablet] 1 tab PO DAILY Sumatriptan [Imitrex*] 25 mg PO PRN PRN 09/10/18 - Past Medical/Surgical History Diabetic: No -: hypertension -: migraines -: Denies any hx of sx - Family History Father -: Hypertension - Social History Smoking Status: Never smoker Alcohol use: Yes CD- Drugs: No Caffeine use: Yes Place of Residence: Home Review of Systems 10-point ROS is otherwise unremarkable Physical Examination - Vital Signs Temperature: 97.4 F Blood Pressure: 95/50 Pulse: 69 Respirations: 16 Pulse Ox (%): 100 - Physical Exam General: Alert, In no apparent distress HEENT: Atraumatic, PERRLA, Mucous membr. moist/pink, EOMI, Sclerae nonicteric Neck: Supple, 2+ carotid pulse no bruit, No LAD, Without JVD or thyroid abnormality Respiratory: Clear to auscultation bilaterally, Normal air movement Cardiovascular: Regular rate/rhythm, Normal S1 S2 Gastrointestinal: Normal bowel sounds, No tenderness Musculoskeletal: No tenderness Integumentary: No rashes Neurological: Normal gait, Normal speech, Normal strength at 5/5 x4 extr, Normal tone, Normal affect Lymphatics: No axilla or inguinal lymphadenopathy - Studies Laboratory Data (last 24 hrs) 09/09/18 18:19: PT 11.9, INR 1.01 09/09/18 18:19: WBC 8.3, Hgb 13.8, Hct 40.5, Plt Count 254 09/09/18 18:19: Sodium 145, Potassium 4.3, BUN 15, Creatinine 0.56, Glucose 82, Magnesium 1.9, Total Bilirubin 0.4, AST 8 L, ALT 19, Alkaline Phosphatase 52 - Diagnosis (Problem(s)) (1) UTI (urinary tract infection) Current Visit: Yes Status: Acute Qualifiers: Urinary tract infection type: acute cystitis Hematuria presence: without hematuria Qualified Code(s): N30.00 - Acute cystitis without hematuria (2) Abnormal Pap smear of cervix Current Visit: Yes Status: Acute Qualifiers: Abnormal Pap type: unspecified Qualified Code(s): R87.619 - Unspecified abnormal cytological findings in specimens from cervix uteri (3) History of use of contraceptive intrauterine device (IUD) Current Visit: Yes Status: Acute (4) Migraine headache Current Visit: Yes Status: Acute Qualifiers: Migraine type: without aura Status migrainosus presence: without status migrainosus Intractability: not intractable Qualified Code(s): G43.009 - Migraine without aura, not intractable, without status migrainosus Treatment Summary: Overall during the hospital stay patient remained stable Patient was initially admitted to the hospital for abdominal pain nausea and vomiting along with migraine headache. Patient's abdominal pain nausea vomiting did resolve while here in the hospital along with migraine headaches after patient was started on pain medication and sumatriptan. Patient had a UA done here in the hospital which was concerning for UTI. Patient did have symptoms of UTI and thus was prescribed Rocephin x1 here in the hospital and was prescribed Augmentin to go home with. Abdominal CT was done for the abdominal pain which was negative for any acute abnormality. Patient however did state that she has a history of recent IUD placement after which she was having a lot of discharge along with the increased bleeding and thus she went to her OBGYN to remove the IUD. IUD however was not removed and she was told that her cervix looks like she might have cervical cancer. Pap smear was done at that time which came back inconclusive. Patient had an appointment with outpatient dietitian after that for a repeat Pap smear. Patient however has not been able to make it to the appointment due to some emergency. Patient currently is not bleeding does not have any discharge at this time and does not complain of any pain in the pelvic area. OBGYN was consulted here in the hospital and outpatient followup was recommended. Patient thus was discharged home under stable condition was asked to follow up with OBGYN outpatient next week for followup appointment. - Disposition Disposition: ROUTINE DISCHARGE Condition: GOOD Patient Discharge Instructions: Please f.u with PCP in 1 to 2 week post discharge. new medication. Augmentin for 7 days. You will need to also f.u with FLOOR PLAN ADJUSTER for repeat papsmear. Diet: Regular Activity: Ad michael
[2018-09-10 13:02] LABS: Specific Gravity 1.025 (1.005-1.030)
--- NOTE | 2018-09-10 14:38 | RAD REPORT ---
EXAM DESCRIPTION: CT - Abdomen Pelvis Wo Contrast - 09/10/2018 2:18 pm CLINICAL HISTORY: Abdominal pain COMPARISON: None. TECHNIQUE: Axial [address] imaging of the abdomen and pelvis was performed without IV contrast. No IV contrast was given because of allergy, abnormal renal function, patient refusal or physician re quest. No oral contrast. All CT scans are performed using dose optimization technique as appropriate and may include automated exposure control or mA/KV adjustment according to patient size. FINDINGS: No suspicious findings in the lung bases. The liver, spleen and pancreas show no suspicious findings on non-contrast imaging. Gallbladder and b iliary tree are also without suspicious finding. No hydronephrosis or suspicious renal mass. No significant adrenal finding. Isodense renal masses an d pyelonephritis cannot be excluded in the absence of IV contrast. The urinary bladder is without sig nificant finding. No suspicious uterus or ovarian finding. IUD is in place well positioned in the fun shelbie portion of the endometrial cavity. No dilated bowel loops or bowel wall thickening. Moderate stool volume seen throughout the colon. No free air, free fluid or inflammatory stranding. No hernia, mass or bulky lymphadenopathy. No appendic itis findings. No suspicious bony findings. IMPRESSION: Non-contrast enhanced CT abdomen and pelvis imaging show no significant or suspicious fi nding. Full assessment is limited is the absence of IV contrast.
== END 2018-09-10 16:20 | disposition home or self-care (01) ==
LOC: ER 17:29 → ERHOLD 20:16 → 4TH 09-10 03:40
PROVIDERS: ADMIT Hospitalist; ATTEND Hospitalist
DX: N39.0 Urinary tract infection, site not specified (principal); R87.619 Unspecified abnormal cytological findings in specimens from cervix uteri; G43.909 Migraine, unspecified, not intractable, without status migrainosus; I10 Essential (primary) hypertension; Z97.5 Presence of (intrauterine) contraceptive device
CPT/HCPCS: 36415; 71045; 74176; 80048; 80053; 80076; 81001; 81003; 81025; 83735; 83880; 84484; 85025; 85610; 87077; 87086; 87088; 87186; 93005; 99285; G0378; J0696; J2405; J7030; Q9967

== ENCOUNTER 2019-07-25 13:39 | Emergency (ER) | payer BC, OTHER ==
--- OUTSIDE RECORDS SUMMARY | 2019-07-25 13:41 | XMS REPORT ---
:1985 [facility] Address [address] [place] [address] [address] [place] [address] Care Team Providers Name Role Phone Unavailable Unavailable Unavailable Problems This patient has no known problems. Allergies, Adverse Reactions, Alerts This patient has no known allergies or adverse reactions. Medications This patient has no known medications.
[2019-07-25] MEDS ORDERED: NA CHLORIDE 0.9% 1,000 ML ONE (14:23)
[2019-07-25] MEDS ORDERED: KETOROLAC 30 MG/ML INJ ONE (14:23)
[2019-07-25] MEDS ORDERED: METOCLOPRAMIDE 10 MG/2mL INJ ONE (14:23)
[2019-07-25] MEDS ORDERED: DIPHENHYDRAMINE 50 MG/ML VIAL ONE (14:23)
--- NOTE | 2019-07-25 15:38 | EDPHYS ---
Physician Documentation [facility] Name: Selene Groves Age: 34 yrs Sex: Female : 1985 Arrival Date: 07/25/2019 Time: 13:45 Bed 23 Private MD: ED Physician Kwan Franklin HPI: 07/25 15:34 This 34 yrs old Female presents to ER via Ambulatory with complaints of ma2 Headache > 24hrs Old. 15:34 The patient complains of pain to the forehead. Onset: The symptoms/episode ma2 began/occurred gradually, 1 week(s) ago. Associated signs and symptoms: Pertinent negatives: altered mental status, fever, paresthesias, vomiting, vertigo. Severity of symptoms: At its worst the pain was very mild, in the emergency department the pain is unchanged. Headache History: Denies prior headaches. The patient has not experienced similar symptoms in the past. 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 - Social history:: Smoking status: Patient/guardian denies using tobacco, Patient/guardian denies using alcohol, street drugs, The patient lives alone, with family. - Ebola Screening: : Patient denies exposure to infectious person Patient denies travel to an Ebola-affected area in the 21 days before illness onset. - Family history:: not pertinent. ROS: 15:34 Constitutional: Negative for fever, chills, and weight loss. ma2 15:34 All other systems are negative. Exam: 15:34 Constitutional: This is a well developed, well nourished patient who is awake, alert, ma2 and in no acute distress. Head/Face: Normocephalic, atraumatic. Eyes: Pupils equal round and reactive to light, extra-ocular motions intact. Lids and lashes normal. Conjunctiva and sclera are non-icteric and not injected. Cornea within normal limits. Periorbital areas with no swelling, redness, or edema. ENT: Nares patent. No nasal discharge, no septal abnormalities noted. Tympanic membranes are normal and external auditory canals are clear. Oropharynx with no redness, swelling, or masses, exudates, or evidence of obstruction, uvula midline. Mucous membranes moist. Neck: Trachea midline, no thyromegaly or masses palpated, and no cervical lymphadenopathy. Supple, full range of motion without nuchal rigidity, or vertebral point tenderness. No Meningismus. Chest/axilla: Normal chest wall appearance and motion. Nontender with no deformity. No lesions are appreciated. Cardiovascular: Regular rate and rhythm with a normal S1 and S2. No gallops, murmurs, or rubs. Normal PMI, no JVD. No pulse deficits. Respiratory: Lungs have equal breath sounds bilaterally, clear to auscultation and percussion. No rales, rhonchi or wheezes noted. No increased work of breathing, no retractions or nasal flaring. Abdomen/GI: Soft, non-tender, with normal bowel sounds. No distension or tympany. No guarding or rebound. No evidence of tenderness throughout. MS/ Extremity: Pulses equal, no cyanosis. Neurovascular intact. Full, normal range of motion. Neuro: Awake and alert, GCS 15, oriented to person, place, time, and situation. Cranial nerves II-XII grossly intact. Motor strength 5/5 in all extremities. Sensory grossly intact. Cerebellar exam normal. Normal gait. Vital Signs: 13:49 BP 112 / 75; Pulse 92; Resp 16; Temp 99.2(TE); Pulse Ox 98% on R/A; Weight 61.23 kg; ss Height 5 ft. 2 in. (157.48 cm); Pain 9/10; 15:31 BP 120 / 71; Pulse 84; Resp 18; Pulse Ox 99% on R/A; Pain 0/10; em 13:49 Body Mass Index 24.69 (61.23 kg, 157.48 cm) MDM: 13:56 Patient medically screened. ma2 15:34 Differential diagnosis: hyponatremia, otitis, uremia. Data reviewed: vital signs, ma2 nurses notes. Counseling: I had a detailed discussion with the patient and/or guardian regarding: the historical points, exam findings, and any diagnostic results supporting the discharge/admit diagnosis, the presence of at least one elevated blood pressure reading (>120/80) during this emergency department visit, the need for outpatient follow up. Response to treatment: the patient's symptoms have mildly improved after treatment. Administered Medications: 14:40 Drug: NS 0.9% 1000 ml Route: IV; Rate: 1 bolus; Site: left antecubital; ss 16:10 Follow up: IV Status: Completed infusion; IV Intake: 1000ml em 14:40 Drug: Reglan 10 mg Route: IVP; Site: left antecubital; ss 15:27 Follow up: Response: No adverse reaction; Marked relief of symptoms; Pain is decreased; em Nausea is decreased 14:43 Drug: TORadol 30 mg Route: IVP; Site: left antecubital; ss 15:27 Follow up: Response: No adverse reaction; Marked relief of symptoms; Pain is decreased em 14:45 Drug: Benadryl 25 mg Route: IVP; Site: left antecubital; ss 15:27 Follow up: Response: No adverse reaction; Marked relief of symptoms em Disposition: 07/25/19 15:37 Discharged to Home. Impression: Migraine. - Condition is Stable. - Discharge Instructions: Migraine Headache, [id number]. - Prescriptions for Reglan 10 mg Oral Tablet - take 1 tablet by ORAL route every 6 hours take 30 minutes before meals and at bedtime; 20 tablet. Tylenol- Codeine #3 300-30 mg Oral Tablet - take 2 tablet by ORAL route every 6 hours As needed; 30 tablet. - Medication Reconciliation Form, Thank You Letter, Antibiotic Education, Prescription Opioid Use form. - Follow up: Private Physician; When: Tomorrow; Reason: Continuance of care. - Problem is new. - Symptoms are unchanged. Signatures: Jj Carreno, DISTRIBUTION A CLASS LINEMAN DISTRIBUTION A CLASS LINEMAN em Gayla Tipton RN RN Kwan Franklin MD MD ma2 Corrections: (The following items were deleted from the chart) 16:16 15:37 07/25/2019 15:37 Discharged to Home. Impression: Migraine. Condition is Stable. em Discharge Instructions: Migraine Headache, [id number]. Prescriptions for Reglan 10 mg Oral Tablet - take 1 tablet by ORAL route every 6 hours take 30 minutes before meals and at bedtime; 20 tablet, Tylenol-Codeine #3 300-30 mg Oral Tablet - take 2 tablet by ORAL route every 6 hours As needed; 30 tablet. and Forms are Medication Reconciliation Form, Thank You Letter, Antibiotic Education, Prescription Opioid Use. Follow up: Private Physician; When: Tomorrow; Reason: Continuance of care. Problem is new. Symptoms are unchanged. ma2
--- NOTE | 2019-07-25 15:38 | ER ---
Nurse's Notes [facility] Name: Selene Groves Age: 34 yrs Sex: Female : 1985 Arrival Date: 07/25/2019 Time: 13:45 Bed 23 Private MD: Diagnosis: Migraine Presentation: 07/25 13:50 Presenting complaint: Patient states: "I'm on day 10 of a migraine. I've been going in ss and out of sensitivity and vision loss. I'm just at my wits end and cannot get an appointment with my doctor. None of my medicine seems to be helping.". Transition of care: patient was not received from another setting of care. Onset of symptoms was July 16, 2019. Risk Assessment: Do you want to hurt yourself or someone else? Patient reports no desire to harm self or others. Initial Sepsis Screen: Does the patient meet any 2 criteria? HR > 90 bpm. Does the patient have a suspected source of infection? No. Patient's initial sepsis screen is negative. Care prior to arrival: None. 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 - Social history:: Smoking status: Patient/guardian denies using tobacco, Patient/guardian denies using alcohol, street drugs, The patient lives alone, with family. - Ebola Screening: : Patient denies exposure to infectious person Patient denies travel to an Ebola-affected area in the 21 days before illness onset. - Family history:: not pertinent. Screenin:20 Abuse screen: Denies threats or abuse. Nutritional screening: No deficits noted. em Tuberculosis screening: No symptoms or risk factors identified. Fall Risk None identified. Assessment: 14:20 General: Appears in no apparent distress. comfortable, Behavior is calm, cooperative, em Denies fever. Pain: Complains of pain in head Pain currently is 9 out of 10 on a pain scale. Pain began 10 days ago. Neuro: Level of Consciousness is awake, alert, obeys commands, Oriented to person, place, time, situation, Appropriate for age Commercial Decorator are equal bilaterally Moves all extremities. Gait is steady, Speech is normal, Facial symmetry appears normal, Pupils are PERRLA, Reports dizziness, headache photophobia. Cardiovascular: Capillary refill < 3 seconds Patient's skin is warm and dry. Respiratory: Airway is patent Respiratory effort is even, unlabored, Respiratory pattern is regular, symmetrical. GI: Reports nausea, Patient currently denies vomiting. Derm: Skin is intact, is healthy with good turgor, Skin is pink, warm \\T\\ dry. Musculoskeletal: Capillary refill < 3 seconds, Range of motion: intact in all extremities. 14:30 General: The previous assessment is accurate. Call light remains within reach. ss 15:44 Reassessment: Patient appears in no apparent distress at this time. Patient and/or em family updated on plan of care and expected duration. Pain level reassessed. Patient is alert, oriented x 3, equal unlabored respirations, skin warm/dry/pink. Patient denies pain at this time. Patient states feeling better. Patient states symptoms have improved. 15:50 Reassessment: pending completion of IV fluids. em Vital Signs: 13:49 BP 112 / 75; Pulse 92; Resp 16; Temp 99.2(TE); Pulse Ox 98% on R/A; Weight 61.23 kg; ss Height 5 ft. 2 in. (157.48 cm); Pain 9/10; 15:31 BP 120 / 71; Pulse 84; Resp 18; Pulse Ox 99% on R/A; Pain 0/10; em 13:49 Body Mass Index 24.69 (61.23 kg, 157.48 cm) ED Course: 13:45 Patient arrived in ED. am2 13:49 Arm band placed on right wrist. ss 13:51 Triage completed. ss 13:55 Kwan Franklin MD is Attending Physician. ma2 13:59 Jj Carreno LVN is Primary Nurse. em 14:20 Patient has correct armband on for positive identification. Placed in gown. Bed in low em position. Call light in reach. 14:40 Inserted saline lock: 22 gauge in left antecubital area, using aseptic technique. em 15:54 No provider procedures requiring assistance completed. em 16:13 IV discontinued, intact, bleeding controlled, No redness/swelling at site. Pressure em dressing applied. Administered Medications: 14:40 Drug: NS 0.9% 1000 ml Route: IV; Rate: 1 bolus; Site: left antecubital; ss 16:10 Follow up: IV Status: Completed infusion; IV Intake: 1000ml em 14:40 Drug: Reglan 10 mg Route: IVP; Site: left antecubital; ss 15:27 Follow up: Response: No adverse reaction; Marked relief of symptoms; Pain is decreased; em Nausea is decreased 14:43 Drug: TORadol 30 mg Route: IVP; Site: left antecubital; ss 15:27 Follow up: Response: No adverse reaction; Marked relief of symptoms; Pain is decreased em 14:45 Drug: Benadryl 25 mg Route: IVP; Site: left antecubital; ss 15:27 Follow up: Response: No adverse reaction; Marked relief of symptoms em Intake: 16:10 IV: 1000ml; Total: 1000ml. em Outcome: 15:37 Discharge ordered by MD. correia 16:10 Discharged to home ambulatory. em 16:10 Condition: good 16:10 Discharge instructions given to patient, Instructed on discharge instructions, follow up and referral plans. medication usage, Demonstrated understanding of instructions, follow-up care, medications, Prescriptions given X 2. 16:16 Patient left the ED. em Signatures: Jj Carreno, DRY CLIPPER TENDER DRY CLIPPER TENDER Gayla Elizalde RN RN Raissa Edwards Mohammad, MD MD ma2 Corrections: (The following items were deleted from the chart) 14:47 11:43 TORadol 30 mg IVP in left antecubital [facility]
[2019-07-25 16:35] VITALS: TEMP 99.2
[2019-07-25 16:36] VITALS: BP 120/71; O2SAT 99
== END 2019-07-25 16:16 | disposition home or self-care (01) ==
LOC: ER 13:39
DX: G43.909 Migraine, unspecified, not intractable, without status migrainosus (principal); I10 Essential (primary) hypertension
CPT/HCPCS: 96361; 96375; 96374; 99283; J2765; J1200; J7030

== ENCOUNTER 2019-09-14 20:14 | Emergency (ER) | payer OTHER ==
--- OUTSIDE RECORDS SUMMARY | 2019-09-14 20:16 | XMS REPORT ---
:1985 [facility] Address [address] [place] [address] Care Team Providers Name Role Phone Unavailable Unavailable Unavailable Problems This patient has no known problems. Allergies, Adverse Reactions, Alerts This patient has no known allergies or adverse reactions. Medications This patient has no known medications.
[2019-09-14] MEDS ORDERED: METOCLOPRAMIDE 10 MG/2mL INJ ONE (20:54)
[2019-09-14] MEDS ORDERED: dexAMETHasone 10 MG/ML VIAL ONE (20:55)
[2019-09-14] MEDS ORDERED: NA CHLORIDE 0.9% 1,000 ML ONE (20:55)
[2019-09-14] MEDS ORDERED: DIPHENHYDRAMINE 50 MG/ML VIAL ONE (20:55)
[2019-09-14] MEDS ORDERED: KETOROLAC 30 MG/ML INJ ONE (21:11)
--- NOTE | 2019-09-14 22:28 | ER ---
Nurse's Notes [facility] Name: Selene Groves Age: 34 yrs Sex: Female : 1985 Arrival Date: 09/14/2019 Time: 20:17 Bed 15 Private MD: Diagnosis: Migraine Presentation: 09/14 21:00 Presenting complaint: Patient states: I have this migraine for 16 days now, on the left rr5 side. denies nausea and vomiting. 21:00 Transition of care: patient was not received from another setting of care. Onset of rr5 symptoms was August 2019. Risk Assessment: Do you want to hurt yourself or someone else? Patient reports no desire to harm self or others. Initial Sepsis Screen: Does the patient meet any 2 criteria? No. Patient's initial sepsis screen is negative. Does the patient have a suspected source of infection? No. Patient's initial sepsis screen is negative. Care prior to arrival: Medication(s) given: topriramide, sumatriptan. 21:00 Method Of Arrival: Ambulatory rr5 21:00 Acuity: LUCÍA 3 rr5 Triage Assessment: 21:00 Headache History: The patient has had previous headaches and this one is similar to previous episodes. 21:00 Pain: Pain began 16 days ago Also complains of no other associated symptoms. 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 - Coronavirus screen:: The patient has NOT traveled to [place], [place], or [place] in the past 14 days. - Social history:: Smoking status: unknown. - Ebola Screening: : Patient negative for fever greater than or equal to 101.5 degrees Fahrenheit, and additional compatible Ebola Virus Disease symptoms Patient denies exposure to infectious person Patient denies travel to an Ebola-affected area in the 21 days before illness onset. Screenin:22 Abuse screen: Denies threats or abuse. Denies injuries from another. Nutritional rr5 screening: No deficits noted. Tuberculosis screening: No symptoms or risk factors identified. Fall Risk IV access (20 points). Total Lopez Fall Scale indicates No Risk (0-24 pts). Assessment: 21:00 General: Appears in no apparent distress. Behavior is calm, cooperative, appropriate wh for age. Pain: Complains of pain in left pentecostalism Pain does not radiate. Pain currently is 8 out of 10 on a pain scale. Quality of pain is described as. Neuro: Level of Consciousness is awake, alert, obeys commands, Oriented to person, place, time, situation, Appropriate for age Refrigeration Specialist are equal bilaterally Moves all extremities. Gait is steady, Speech is normal, Facial symmetry appears normal, Pupils are PERRLA, Reports headache in left parietal area. Cardiovascular: Heart tones S1 S2. Respiratory: Airway is patent Respiratory effort is even, unlabored, Respiratory pattern is regular, symmetrical. GI: Abdomen is flat, non-distended. : No signs and/or symptoms were reported regarding the genitourinary system. EENT: No signs and/or symptoms were reported regarding the EENT system. Derm: Skin is intact, is healthy with good turgor, Skin is pink, warm \T\ dry. normal. Musculoskeletal: Circulation, motion, and sensation intact. 22:30 Reassessment: Patient appears in no apparent distress at this time. No changes from previously documented assessment. Patient and/or family updated on plan of care and expected duration. Pain level reassessed. Patient is alert, oriented x 3, equal unlabored respirations, skin warm/dry/pink. Patient states feeling better. Patient states symptoms have improved. Vital Signs: 21:00 BP 111 / 77; Pulse 62; Resp 17; Temp 98.1; Pulse Ox 99% ; Weight 54.43 kg; Height 5 ft. rr5 2 in. (157.48 cm); Pain 10/10; 22:30 BP 115 / 72; Pulse 55; Resp 18; Pulse Ox 100% on R/A; wh 21:00 Body Mass Index 21.95 (54.43 kg, 157.48 cm) rr5 ED Course: 20:17 Patient arrived in ED. jg7 20:26 Bryce Garcia PA is PHCP. [facility] 20:26 Juan Corrales MD is Attending Physician. [facility] 20:47 Yovani Corrigan, RN is Primary Nurse. rr5 21:00 Arm band placed on. rr5 21:00 Patient has correct armband on for positive identification. Placed in gown. Bed in low rr5 position. Call light in reach. Pulse ox on. NIBP on. 21:15 Inserted saline lock: 22 gauge in right antecubital area, using aseptic technique. rr5 Blood collected. 21:18 Triage completed. rr5 21:52 PHCP role handed off by Bryce Garcia PA la1 21:52 Sy Cueto FNP-C is PHCP. la1 22:24 Messi Ruffin MD is Referral Physician. la1 22:46 No provider procedures requiring assistance completed. IV discontinued, intact, wh bleeding controlled, No redness/swelling at site. Administered Medications: 21:15 Drug: NS 0.9% 250 ml Route: IV; Rate: calculated rate; Site: right antecubital; rr5 22:42 Follow up: Response: No adverse reaction; IV Status: Completed infusion 21:16 Drug: Decadron - Dexamethasone 10 mg Route: IVP; Site: right antecubital; rr5 22:42 Follow up: Response: No adverse reaction 21:18 Drug: diphenhydrAMINE 12.5 mg Route: IVP; Site: right antecubital; rr5 22:42 Follow up: Response: No adverse reaction 21:19 Drug: Ketorolac 30 mg Route: IVP; Site: right antecubital; rr5 22:42 Follow up: Response: No adverse reaction; Pain is decreased 21:20 Drug: Reglan 10 mg Route: IVP; Site: right antecubital; rr5 22:42 Follow up: Response: No adverse reaction Outcome: 22:24 Discharge ordered by . la1 22:47 Discharged to home ambulatory. 22:47 Condition: stable 22:47 Discharge instructions given to patient, Instructed on discharge instructions, follow up and referral plans. POC Demonstrated understanding of instructions, follow-up care, POC 22:47 Patient left the ED. Signatures: Bryce Garcia PA PA [facility] Sy Cueto FNP-C LEAD TRAINER-[facility] [place], WinYovani Ivan, ROBBIE RN rr5 Matilde Gray jg7
--- NOTE | 2019-09-14 22:28 | EDPHYS ---
Physician Documentation [facility] Name: Selene Groves Age: 34 yrs Sex: Female : 1985 Arrival Date: 09/14/2019 Time: 20:17 Bed 15 Private MD: ED Physician Juan Corrales HPI: 09/14 21:03 This 34 yrs old Female presents to ER via Unassigned with complaints of jmm Headache. 21:03 The patient complains of pain to the left mandaeism, left frontal area and left temporal jmm area. Onset: The symptoms/episode began/occurred gradually, 1 week(s) ago. Associated signs and symptoms: Pertinent negatives: fever, Photophobia vision changes, vomiting. The patient has experienced similar episodes in the past, several times. This is a 34 year old female with a history of migraines that presents to the ED with complaints of onoign headaches similar to previous migraines. Patient recently increased dose of topomax which has helped with photophobia, nausea, and visual changes but patient continues to have headaches. . 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 - Coronavirus screen:: The patient has NOT traveled to [place], [place], or [place] in the past 14 days. - Social history:: Smoking status: unknown. - Ebola Screening: : Patient negative for fever greater than or equal to 101.5 degrees Fahrenheit, and additional compatible Ebola Virus Disease symptoms Patient denies exposure to infectious person Patient denies travel to an Ebola-affected area in the 21 days before illness onset. ROS: 21:03 Constitutional: Negative for fever, chills, and weight loss, Cardiovascular: Negative jmm for chest pain, palpitations, and edema, Respiratory: Negative for shortness of breath, cough, wheezing, and pleuritic chest pain, Abdomen/GI: Negative for abdominal pain, nausea, vomiting, diarrhea, and constipation. 21:03 Neuro: Positive for headache. 21:03 All other systems are negative. Exam: 21:03 Constitutional: This is a well developed, well nourished patient who is awake, alert, jmm and in no acute distress. Head/Face: atraumatic. Eyes: EOMI, no conjunctival erythema appreciated ENT: Moist Mucus Membranes Neck: Trachea midline, Supple Chest/axilla: Normal chest wall appearance and motion. Cardiovascular: Regular rate and rhythm. No edema appreciated Respiratory: Normal respirations, no respiratory distress appreciated Abdomen/GI: Non distended, soft Back: Normal ROM Skin: General appearance color normal MS/ Extremity: Moves all extremities, no obvious deformities appreciated, no edema noted to the lower extremities Neuro: Awake and alert, normal gait Psych: Behavior is normal, Mood is normal, Patient is cooperative and pleasant Vital Signs: 21:00 BP 111 / 77; Pulse 62; Resp 17; Temp 98.1; Pulse Ox 99% ; Weight 54.43 kg; Height 5 ft. rr5 2 in. (157.48 cm); Pain 10/10; 22:30 BP 115 / 72; Pulse 55; Resp 18; Pulse Ox 100% on R/A; wh 21:00 Body Mass Index 21.95 (54.43 kg, 157.48 cm) rr5 MDM: 20:40 Patient medically screened. [facility] 21:45 Data reviewed: vital signs, nurses notes. [facility] 21:46 Transition of care: After a detail discussion of the patient's case, care is [facility] transferred to [facility]. 22:24 Data interpreted: Pulse oximetry: on room air is 99 %. Interpretation: normal. la1 Counseling: I had a detailed discussion with the patient and/or guardian regarding: the historical points, exam findings, and any diagnostic results supporting the discharge/admit diagnosis, the need for outpatient follow up, a family practitioner. 09/14 20:44 Order name: Saline Lock; Complete Time: 21:25 [facility] Administered Medications: 21:15 Drug: NS 0.9% 250 ml Route: IV; Rate: calculated rate; Site: right antecubital; rr5 22:42 Follow up: Response: No adverse reaction; IV Status: Completed infusion 21:16 Drug: Decadron - Dexamethasone 10 mg Route: IVP; Site: right antecubital; rr5 22:42 Follow up: Response: No adverse reaction 21:18 Drug: diphenhydrAMINE 12.5 mg Route: IVP; Site: right antecubital; rr5 22:42 Follow up: Response: No adverse reaction 21:19 Drug: Ketorolac 30 mg Route: IVP; Site: right antecubital; rr5 22:42 Follow up: Response: No adverse reaction; Pain is decreased 21:20 Drug: Reglan 10 mg Route: IVP; Site: right antecubital; rr5 22:42 Follow up: Response: No adverse reaction Disposition: 09/15 09:23 Co-signature as Attending Physician, Juan Corrales MD I agree with the assessment and jah plan of care. Disposition: 09/14/19 22:24 Discharged to Home. Impression: Migraine. - Condition is Stable. - Discharge Instructions: Migraine Headache. - Medication Reconciliation Form, Thank You Letter form. - Follow up: Messi Ruffin; When: 2 - 3 days; Reason: Recheck today's complaints, Continuance of care, Re-evaluation by your physician. Signatures: Juan Corrales MD MD cha Mickail, Joel, PA PA Sy Rodriguez, ALGOLOGIST-C ALGOLOGIST-Cla1 Alie Marcelino Yovani Corrigan, RN RN rr5 Corrections: (The following items were deleted from the chart) 09/14 22:47 22:24 09/14/2019 22:24 Discharged to Home. Impression: Migraine. Condition is Stable. Discharge Instructions: Migraine Headache. Forms are Medication Reconciliation Form, Thank You Letter, Antibiotic Education, Prescription Opioid Use. Follow up: Messi Ruffin; When: 2 - 3 days; Reason: Recheck today's complaints, Continuance of care, Re-evaluation by your physician. la1
[2019-09-14 23:05] VITALS: TEMP 98.1
[2019-09-14 23:07] VITALS: BP 115/72; O2SAT 100
== END 2019-09-14 22:47 | disposition home or self-care (01) ==
LOC: ER 20:14
DX: G43.909 Migraine, unspecified, not intractable, without status migrainosus (principal); I10 Essential (primary) hypertension
CPT/HCPCS: 96365; 96375; 99284; J2765; J1200; J1100; J7030